=== PATIENT | female | born 1950 | race Caucasian/White ===

== ENCOUNTER 2022-09-25 06:32 | Day surgery (SDC) | payer OTHER, SELFPAY ==
[2022-09-25] VITALS (8 sets, daily range): BP systolic 127–179; BP diastolic 52–70; PULSE 73–83; RESP 14–18; TEMP 35.8–36.5; O2SAT 93–97; BMI 32.4
[2022-09-25 06:58] LABS: Glucometer 124 mg/dL (74-106)
--- NOTE | 2022-09-25 07:19 | PC.NURSE ---
Moist non-productive cough
[2022-09-25] MEDS: LACTATED RINGER'S SOLUTION 1,000 ML 50 ML IV (07:30)
[2022-09-25] MEDS: CEFAZOLIN SODIUM/DEXTROSE,ISO 2 GM/50 ML PIGGYBACK IV ×2 (07:30→07:37)
--- NOTE | 2022-09-25 08:10 | XR_ITS ---
The [address] [address] Patient Name: UDAY SEPULVEDA MRN: [id number] date: 1950 Sex: F Assigned Patient Location: [facility] Current Patient Location: [facility] Accession/Order Number: [id number] Exam Date: 09/25/2022 08:50 Report Date: 09/25/2022 09:25 At the request of: TONI BLAKE Procedure: XR foot RT min 3V PROCEDURE: XR foot RT min 3V HISTORY: post-op COMPARISON: XR foot right 05/10/2022 FINDINGS: BONES:Prior resection of distal end of third and fourth toes. 2 screws within head of second metatarsal. Moderate degenerative joint disease of the first metatarsophalangeal joint. SOFT TISSUES:Soft tissue swelling versus postsurgical changes involving tip of second toe. EFFUSION:None visible. OTHER: Negative. IMPRESSION: 1. Surgical changes as detailed above. Electronically authenticated by: RUSTY PATTERSON Date: 09/25/2022 09:25
[2022-09-25 08:22] LABS: Glucometer 149 mg/dL (74-106)
--- NOTE | 2022-09-25 08:59 | PC.NURSE ---
ICE BEHIND KNEE ON RIGHT
--- NOTE | 2022-09-25 09:02 | P.ORON_ITS ---
Brief Operative Note Date of procedure: 09/25/22 Pre-op diagnosis: right 3rd toe contracture/hammertoe Post-op diagnosis: same Procedure: right partial 3rd toe amputation PROCEDURE IN DETAIL: Patient was identified in pre op and consent was reviewed. Correct side and site were identified and marked. Pre-op antibiotics were started. Patient was brought to OR suite and place on table in a supine position. General anesthesia was administered. Tourniquet applied. Operative extremity was prepped and draped in usual sterile fashion. Formal time-out was performed and the foot/ankle were exsanguinated and tourniquet inflated. A fishmouth incision was placed on the 3rd toe. Full-thickness incision was taken down to bone to the level of the distal interphalangeal joint and all soft tissue attachments were released allowing disarticulation of the digit. The amputated digit was passed back table and sent for specimen. Tendinous structures were cut proximally. Surgical site was irrigated with normal saline. tourniquet was deflated with a prompt hyperemic response.Incision was then closed in one layer with nonabsorbable suture. Bulky dry sterile dressing was applied and surgical shoe was then applied. Implants: none Anesthesia: HAFSA Surgeon: Antonio Segovia Vice President Risk Management: Vincent Westfall Estimated blood loss (mL): 5 Pathology: none sent Condition: stable Disposition: PACU Preoperative Details Surgery: right partial 3rd toe amputation Reason for procedure: patient is a 71-year-old female who has had long-standing 3rd right toe deformity which is caused pain and difficulty with shoes. She has been cleared by vascular surgery by Dr. Simmons, who placed a temporary endovascular filter given history of chronic deep vein thrombosis and right femoral vein. She is also on blood thinners which she has delayed and will restart postoperatively. She was educated on all potential complications including but not limited to blood clot including pulmonary embolism, infection, wound, bleeding, pain and need for additional surgery. Due to her failure to respond to nonsurgical care she wished to proceed with partial toe amputation Surgeon: Antonio Segovia Date of surgery: 09/25/22 Current medication(s): reviewed, see home medication list Use of anticoagulation agents: Yes (xarelto 20 mg daily and ASA 81 mg daily) Patient history: Reports chronic obstructive pulmonary disease (COPD), diabetes and hypertension
== END 2022-09-25 09:50 | disposition home or self-care (01) ==
PROVIDERS: PCP Internal Medicine; Visit Provider Podiatrist Foot & Ankle Surgery
PROC: (CPT 28825; principal; 2022-09-25 07:30)
DX: M20.41 Other hammer toe(s) (acquired), right foot (principal); M20.5X1 Other deformities of toe(s) (acquired), right foot; E11.9 Type 2 diabetes mellitus without complications; I10 Essential (primary) hypertension; I25.10 Atherosclerotic heart disease of native coronary artery without angina pectoris; F17.210 Nicotine dependence, cigarettes, uncomplicated; Z86.718 Personal history of other venous thrombosis and embolism; Z79.01 Long term (current) use of anticoagulants; Z79.82 Long term (current) use of aspirin
CPT/HCPCS: 28825; 36415; 36416; 73630; 82948; 88305; 88311; J2704

== ENCOUNTER 2024-09-03 14:33 | Outpatient (OUT) | payer OTHER, SELFPAY ==
--- NOTE | 2024-09-03 14:58 | PM.WCHP ---
Wound Care H&P: HPI History of Present Illness Narrative: The patient is a pleasant 73-year-old female who presents for routine nail care. The patient had prior partial amputations of the right toes 3 and 4. She has painful calluses on the tip of the fourth toe stump on the right and beneath the second metatarsal head on the left. She also complains of occasional discomfort in the left anterior/lateral ankle that is worse while lying down. PFSH PFS Family History (Updated 09/21/22 @ 08:38 by Franca Locke NP) Mother Family history of cancer Family history of COPD (chronic obstructive pulmonary disease) Grandmother Family history of cancer Meds Home Medications and Allergies Home Medications ?Medication ?Instructions ?Recorded ?Confirmed ?Type amlodipine 10 mg tablet 10 mg PO QDAY 09/21/22 09/25/22 History aspirin 81 mg tablet,delayed 81 mg PO QDAY 09/21/22 09/25/22 History release atorvastatin 10 mg tablet 10 mg PO QPM 09/21/22 09/25/22 History cholecalciferol (vitamin D3) 50 50 mcg PO QDAY 09/21/22 09/25/22 History mcg (2,000 unit) capsule fluticasone fur. 200 mcg-umeclid 1 inh inhalation Q24H 09/21/22 09/21/22 History 62.5 mcg-vilant 25 mcg inhalat.powder (Trelegy Ellipta) rivaroxaban 20 mg tablet (Xarelto) 20 mg PO QDAY 09/21/22 09/25/22 History cefadroxil 500 mg capsule 500 mg PO BID 10 days #20 caps 09/25/22 Rx hydrocodone 5 mg-acetaminophen 325 1 tab PO Q6H PRN pain 7 days #28 09/25/22 Rx mg tablet tabs ondansetron 4 mg disintegrating 4 mg PO QDAY PRN nausea and 09/25/22 Rx tablet vomiting 3 days #6 tabs sennosides 8.6 mg tablet (senna) 8.6 mg PO BID PRN constipation 3 09/25/22 Rx days #6 tabs Allergies Allergy/AdvReac Type Severity Reaction Status Date / Time No Known Drug Allergies Allergy Verified 09/21/22 08:27 Exam Narrative: Exam Narrative: Derm: The toenails on the remaining toes are elongated, thickened, incurvated, and mycotic. Callus formation noted along the surgical scar on the right toe #4. Hyperkeratotic lesion noted beneath the second metatarsal head on the left. No ulcerations are noted. Skin is soft but thin and somewhat shiny. Neuro: Sensation is grossly intact. Normal muscle tone. Vascular: Brisk capillary refill to all toes. 2+ pitting edema noted of bilateral ankles Musculoskeletal: Partial amputations noted of right toes 3 and 4, otherwise no gross deformity Assessment and Plan Assessment and Plan (1) PAD (peripheral artery disease): (2) Tinea unguium: (3) Acquired absence of other right toe(s): (4) Toe pain, right: (5) Skin callus: Plan Routine nail and callus care performed. Follow-up in 3 months. Acute Procedures Podiatry Nail Debridement Class A Findings Class A findings: non-traumatic amputation of foot or integral skeletal portion thereof Class B Findings Advanced trophic changes as evidenced by any three of the following: decreased hair growth, nail changes (thickening) and skin texture (thin or shiny) Class C Findings Claudication: No Temperature changes: No Edema: Yes Nail debridement paresthesia (abnormal spontaneous sensations in the feet): No Burning: No Qualifies If: Qualifiers If:: A patient qualifies for nail debridement if they have: 1 class A finding (Q7) 2 class B findings (Q8) OR 1 class B & 2 class C findings in addition to a primary condition (Q9) Nail Procedure Nail Procedure Time out: Yes Nail procedure: other (Toenail debridement) Number of affected nails: 8 Location (toes): left and right (Toenails of right toes 3 and 4 are surgically absent) Patient tolerated procedure: well and no complications Additional comments: Remaining toenails were sharply debrided with nail nippers without incident. Calluses on the tip of the right fourth toe stump and beneath the second metatarsal head on the left were pared with a dermal curette to the patient's satisfaction. She noted pain relief immediately.
== END 2024-09-03 14:34 | disposition home or self-care (01) ==
LOC: WC 14:33
PROVIDERS: PCP Internal Medicine; Visit Provider Physician Assistant
DX: I73.9 Peripheral vascular disease, unspecified (principal); B35.1 Tinea unguium; L84 Corns and callosities
CPT/HCPCS: 11056; 11721

== ENCOUNTER 2024-12-11 13:46 | Outpatient (OUT) | payer MEDICARE, SELFPAY ==
--- OUTSIDE RECORDS SUMMARY | 2023-12-27 09:20 | XMS_ITS ---
Author Organization The [facility] in [place] Address [address] [place] [address] Care Team Providers Care Visual And Stock Associate Name Role Phone IngridAlessia Otero DO Primary Care Provider Un available Kaelyn Vargas Unavailable [phone] Allergies No Known Allergies REASON FOR VISIT nail care/ callus Medications Medication SIG (Take, Route, Frequency, Duration) Notes Start Date End Date Status Aspirin 81 81 MG 1 tablet Orally Once a day Active Lisinopril 10 MG 1 tablet Orally Once a day Active Trelegy Ellipta Acti ve Vitamin D 50 MCG (1999) 1 tablet Orally Once a day Active Xarelto 10 MG 1 tablet Orally Once a day Active amLODIPine Besylate 10 MG 1 tablet Orally Once a day Active Social History Tobacco Use: Social History Observation Description Date Details (start date - stop date) Current Smoker NA - NA Tobacco Use/Smoking Question Answer Notes Patient is a current smoker How often do you smoke cigarettes? every day How many cigarettes a day do you smoke? 31 or mo re How soon after you wake up do you smoke your fir st cigarette? 6-30 minutes Are you interested in quitting? Not ready to vanesa t Vital Signs Heart Rate 90 /min 12/27/2023 Respiratory Rate 16 /min 12/27/2023 Height 59 in 12/27/2023 Weight 160 lbs 12/27/2023 BMI 32.31 kg/m2 12/27/2023 Oximetry 97 % 12/27/2023 Encounters Encounter Location Date Provider Diagnosis [facility] (PODIATRY) [address] [place] [address] [place] [address] 12/27/2023 Kaelyn Vargas Callus of foot L84 ; Pain in left toe(s) M79.675 and Pain in right toe(s) M79.674 Assessments Encounter Date Diagnosis (ICD Code) Assessment Notes Treatment Notes Treatment Clinical Notes Section Notes 12/27/2023 Callus of foot (ICD-10 - L84) The patient is a 73-year-old female, well-known to our practice, who presents for evaluation of painful elongated toenails and a painful callus on the right foot. After verbal consent, the toenails were trimmed with nail nippers without incident. Callus was debrided using a dermal curette. She noted pain relief postprocedure. Follow-up as needed. 12/27/2023 Pain in left toe(s) (ICD-10 - M79.675) 12/27/2023 Pain in right toe(s) (ICD-10 - M79.674) Plan Of Treatment Treatment Notes Assessment Notes Callus of foot The patient is a 73-year-old female, well-known to our practice, who presents for evaluation of painful elongated toenails and a painful callus on the right foot. After verbal consent, the toenails were trimmed with nail nippers without incident. Callus was debrided using a dermal curette. She noted pain relief postprocedure. Follow-up as needed. Next Appt Details Follow Up: prn, Reason: Progress Notes * Amrit IRIZARRYOB:1950 (73 yo F)Acc No.[id number]:12/27/2023 Follow Up Patient: Bambi LAW Provider: Digna Vargas PA-C :1950 A ge:73 Y S ex:Female Date:12/27/2023 Address:[address] [facility], [place], [id number] Pcp:Jessica Dixon Check In:01:11 PM ESTCheck O ut:01:38 PM EST Subjective: * Chief Complaints: * N ail care/ callus * HPI: G eneral: Here for nail care and paring of right great toe callus. PT has toes left 1-2-3-4-5 and right 1-2-5 nails thick and long. * ROS: G eneral/Constitutional: Chills d enies. F ever d enies. W eight gain?denies. W eight loss d enies. S kin: Skin Ulcers d enies. S kin lesion(s) d enies. ? C ardiovascular: Difficulty breathing on exertion d enies. L eg cramps?denies. E yohan d enies. C hest pain d enies. R espiratory: Difficulty breathing d enies. D yspnea d enies.?Cough d enies. G astrointestinal: Diarrhea d enies. N ausea d enies. V omiting?denies. M usculoskeletal: Bone/Joint Symptoms d enies. C shelter Pain d enies.?Leg cramps d enies. N eurologic: Numbness d enies. T ingling d enies . G ait abnormality d enies. ? H ematology: Anemia D enies. E asy bruising d enies. ? A ll Other Systems: Review of Systems (ROS) S ee HPI for details,All others negative except those mentioned in HPI. * Active Problem List M20.41 Acquired hammer toe deformity of lesser toe of right foot Modified On:11/07/2022W/U Status:confirmed * Medical History: * Surgical History: R ight 2nd toe arthroplasty, dipesh osteotomy 12/16/2019right partial 3rd toe amputation 09/22/2022 * Hospitalization/Major Diagno stic Procedure: N o Hospitalization History. * Family History: N o Family History documented.. * Social History: T obacco Use: T obacco Use/Smoking P atient is a c urrent smoker H ow often do you smoke cigarettes? e very day H ow many cigarettes a day do you smoke? 3 1 or more H ow soon after you wake up do you smoke your first cigarette? 6 -30 minutes A re you interested in quitting? N ot ready to quit * Medications: T akingamLODIPine Besylate 10 MG Tablet 1 tablet Orally Once a day Aspirin 81(Aspirin) 81 MG Tablet Delayed Release 1 tablet Orally Once a day Lisinopril 10 MG Tablet 1 tablet Orally Once a day Trelegy Ellipta Vitamin D 50 MCG (1999 UT) Tablet 1 tablet Orally Once a day Xarelto(Rivaroxaban) 10 MG Tablet 1 tablet Orally Once a day Medication List reviewed and reconciled with the patientTaking amLODIPine Besylate 10 MG Tablet 1 tablet Orally Once a day Taking Aspirin 81(Aspirin) 81 MG Tablet Delayed Release 1 tablet Orally Once a day Taking Lisinopril 10 MG Tablet 1 tablet Orally Once a day Taking Trelegy Ellipta Taking Vitamin D 50 MCG (1999 UT) Tablet 1 tablet Orally Once a day Taking Xarelto(Rivaroxaban) 10 MG Tablet 1 tablet Orally Once a day Medication List reviewed and reconciled with the patient * Allergies: N .K.D.A.no[Allergies Verified] Objective: * Vitals: W t:160lbs, Ht: 59 in, HR:90/min, RR:16/min, BMI:32.31Index, Pain scale:01-10, Oxygen sat %:97%, Ht-cm: 149.86 cm, Wt-k.57 kg. * Examination: P odiatry Exam: S KIN: Toenails of both feet are elongated and painful to touch No open lesions Previously healed surgical incisions noted No breaks in the skin Hyperkeratotic skin lesion noted medial aspect of the right hallux MUSCULOSKELETAL: N o pain to palpation, N o gross deformity, S trength equal & symmetric No pain with calf compression Compartment soft and compressible Partial digital amputations noted NEUROLOGICAL: l ight touch sensation intact, n egative tinel's sign. VASCULAR: P edal pulses palpable, C apillary refill is brisk to toes. Assessment: * Assessment: 1. C allus of foot - L84 (Primary) 2 . P ain in left toe(s) - M79.675 3 . P ain in right toe(s) - M79.674 Plan: * Treatment: * Procedure Codes: * Follow Up: p rn * * Sign off status: Completed Visit Status: C HK (Check Out) true * Provider: Digna Vargas PA-C Date: 0 12/27/2023 Generated for Rosalinda smart/Danish/eTransmitting on: 12/11/2024 01:48 PM EDT History and Physical Notes * HPI (History of Present Illness) Category Sub-Category Detail Notes Category Not es General Here for nail c are and paring of right great toe callus. PT has toes left 1-2-3-4-5 and right 1-2-5 nails thick and long Examination Category Sub-Category Detail Notes Category Not es Podiatry Exam SKIN: Toenails of both feet are elongated and painful to touch No open lesions Previously healed surgical incisions noted No breaks in the skin Hyperkeratotic skin lesion noted medial aspect of the right hallux MUSCULOSKELETAL: No pain to palpation, No gross deformity, Strength equal & symmetric No pain with calf compression Compartment soft and compressible Partial digital amputations noted NEUROLOGICAL: light touch sensation intact, negative tinel's sign. VASCULAR: Pedal pulses palpable, Capillary refill is brisk to toes.
--- OUTSIDE RECORDS SUMMARY | 2024-04-03 10:20 | XMS_ITS ---
Author Organization The [facility] [place] Address [address] [place] [address] Care Team Providers Care Gun Mechanic Name Role Phone IngridSarah Otero DOra Primary Care Provider Un available Kaelyn Vargas Unavailable [phone] Allergies No Known Allergies REASON FOR VISIT nails and RT foot callus trim Medications Medication SIG (Take, Route, Frequency, Duration) Notes Start Date End Date Status Aspirin 81 81 MG 1 tablet Orally Once a day Active Trelegy Ellipta Acti ve Lisinopril 10 MG 1 tablet Orally Once a day Active Xarelto 10 MG 1 tablet Orally Once a day Active Vitamin D 50 MCG (1999) 1 tablet [...] to vanesa t Vital Signs Heart Rate 84 /min 04/03/2024 Respiratory Rate 16 /min 04/03/2024 Height 59 in 04/03/2024 Weight 160 lbs 04/03/2024 BMI 32.31 kg/m2 04/03/2024 Oximetry 96 % 04/03/2024 Encounters Encounter Location Date Provider Diagnosis [facility] (PODIATRY) [address] [place] [address] [place] [address] 04/03/2024 Kaelyn Vargas Acquired hammer toe deformity of lesser toe of right foot M20.41 and Callus of foot L84 Assessments Encounter Date Diagnosis (ICD Code) Assessment Notes Treatment Notes Treatment Clinical Notes Section Notes 04/03/2024 Acquired hammer toe deformity of lesser toe of right foot (ICD-10 - M20.41) The patient is a 73-year-old female, well-known to our practice, who presents for evaluation of painful elongated toenails and a painful callus on the right foot. After verbal consent, the toenails were trimmed with nail nippers without incident. Callus was debrided using a dermal curette. She noted pain relief postprocedure. Follow-up as needed. 04/03/2024 Callus of foot (ICD-10 - L84) Plan Of Treatment Treatment Notes Assessment Notes Acquired hammer toe deformit y of lesser toe of right foot The patient is a 73-year-old female, [...] Notes * Amrit IRIZARRYOB:1950 (73 yo F)Acc No.[id number]:04/03/2024 Follow Up Patient: Bambi LAW Provider: Digna Vargas PA-C :1950 A ge:73 Y S ex:Female Date:04/03/2024 [address] [facility] [id number] Pcp:Jessica Dixon Check In:02:15 PM ESTCheck O ut:02:46 PM EST Subjective: * Chief Complaints: * n ails and RT foot callus trim * HPI: G eneral: here for toenail care and callus paring bilateral feet. * ROS: G eneral/Constitutional: Chills d enies. [...] M usculoskeletal: Bone/Joint Symptoms d enies. C fdc Pain d enies.?Leg cramps d enies. N [...] Surgical History: R ight 2nd toe arthroplasty, dipseh osteotomy 12/16/2019right partial 3rd toe amputation 09/22/2022 [...] day Trelegy Ellipta Vitamin D 50 MCG (1999) Tablet 1 tablet Orally Once a day Xarelto(Rivaroxaban) 10 MG Tablet 1 tablet Orally Once a day Medication List reviewed and reconciled with the patientTaking amLODIPine Besylate 10 MG Tablet 1 tablet Orally Once a day Taking Aspirin 81(Aspirin) 81 MG Tablet Delayed Release 1 tablet Orally Once a day Taking Lisinopril 10 MG Tablet 1 tablet Orally Once a day Taking Sunny Guzman Taking Vitamin D 50 MCG (1999) Tablet 1 tablet Orally Once a day Taking Xarelto(Rivaroxaban) 10 MG Tablet 1 tablet Orally Once a day Medication List reviewed and reconciled with the patient * Allergies: N .K.D.A.no[Allergies Verified] Objective: * Vitals: W t:160lbs, Ht: 59 in, HR:84/min, RR:16/min, BMI:32.31Index, Pain scale:01-10, Oxygen sat %:96%, Ht-cm: 149.86 cm, Wt-k.57 kg. * Examination: [...] brisk to toes. Assessment: * Assessment: 1. A cquired hammer toe deformity of lesser toe of right foot - M20.41 (Primary) ?2. C allus of foot - L84 Plan: * Treatment: * Procedure Codes: * Follow Up: p rn * * Sign off status: Completed Visit Status: C HK (Check Out) true * Provider: Digna Vargas PA-C Date: 1 06/04/2023 Generated for Rosalinda smart/Danish/Gretelitting on: 0 12/11/2024 01:48 PM EDT History and Physical Notes * HPI (History of Present Illness) Category Sub-Category Detail Notes Category Not es General here for toenai l care and callus paring bilateral feet Examination Category Sub-Category Detail Notes Category Not [...]
--- OUTSIDE RECORDS SUMMARY | 2024-06-19 09:20 | XMS_ITS ---
Author Organization [facility] in [place] Address [address] [place] [address] Care Team Providers Care Geophysics Teacher Name Role Phone Carlitosy Alessia NORIEGA Primary Care Provider Un available Kaelyn Vargas Unavailable [phone] Allergies No Known Allergies REASON FOR VISIT NAIL CARE/ CALLUS Medications Medication SIG (Take, Route, Fr equency, Duration) Notes Start Date End Date Status Venlafaxine HCl 100 MG 1 tablet with andrae d Orally Once a day Active Valsartan 160 MG 1 tablet Orally Once a day Active tiZANidine HCl 4 MG 1 tablet at bedtime as needed Orally Once a day Active Lisinopril 10 [...] to vanesa t Vital Signs Heart Rate 86 /min 06/19/2024 Respiratory Rate 16 /min 06/19/2024 Height 59 in 06/19/2024 Weight 160 lbs 06/19/2024 BMI 32.31 kg/m2 06/19/2024 Oximetry 96 % 06/19/2024 Encounters Encounter Location Date Provider Diagnosis [facility] (PODIATRY) [address] [place] [address] [place] [address] 06/19/2024 Kaelyn Vargas Acquired hammer toe deformity of lesser toe of right foot M20.41 ; Callus of foot L84 ; Nail disorder, unspecified L60.9 ; Pain in left toe(s) M79.675 ; Foot pain, right M79.671 and Status post amputation of lesser toe of right foot Z89.421 Assessments Encounter Date Diagnosis (ICD Code) Assessment Notes Treatment Notes Treatment Clinical Notes Section Notes 06/19/2024 Acquired hammer toe deformity of lesser toe of right foot (ICD-10 - M20.41) The patient is a 73-year-old female, well-known to our practice, who presents for evaluation of painful elongated toenails and a painful callus on the left foot. After verbal consent, the toenails were trimmed with nail nippers without incident. Callus was debrided using a dermal curette. She noted pain relief postprocedure. Follow-up as needed. 06/19/2024 Callus of foot (ICD-10 - L84) 06/19/2024 Nail disorder, unspecified (ICD-10 - L60.9) 06/19/2024 Pain in left toe(s) (ICD-10 - M79.675) 06/19/2024 Foot pain, right (ICD-10 - M79.671) 06/19/2024 Status post amputation of lesser toe of right foot (ICD-10 - Z89.421) Plan Of Treatment Treatment Notes Assessment Notes Acquired hammer toe deformit y of lesser toe of right foot The patient is a 73-year-old female, well-known to our practice, who presents for evaluation of painful elongated toenails and a painful callus on the left foot. After verbal consent, the toenails were trimmed with nail nippers without incident. Callus was debrided using a dermal curette. She noted pain relief postprocedure. Follow-up as needed. Next Appt Details Follow Up: prn, Reason: Progress Notes * Amrit IRIZARRYOB:1950 (73 yo F)Acc No.[id number]:06/19/2024 Follow Up Patient: Bambi LAW Provider: Digna Vargas PA-C :1950 A ge:73 Y S ex:Female Date:06/19/2024 Address:[address] [facility] [place], [id number] Pcp:Jessica Dixon Check In:01:13 PM ESTCheck O ut:01:56 PM EST Subjective: * Chief Complaints: * N AIL CARE/ CALLUS * HPI: G eneral: Pt here for bilateral nail trim, left plantar foot callus paring. No other complaints. * ROS: G eneral/Constitutional: Chills d enies. [...] M usculoskeletal: Bone/Joint Symptoms d enies. C senior living Pain d enies.?Leg cramps d enies. N [...] ot ready to quit * Medications: T akingLisinopril 10 MG Tablet 1 tablet Orally Once a day tiZANidine HCl 4 MG Tablet 1 tablet at bedtime as needed Orally Once a day Valsartan 160 MG Tablet 1 tablet Orally Once a day Venlafaxine HCl 100 MG Tablet 1 tablet with food Orally Once a day Taking Lisinopril 10 MG Tablet 1 tablet Orally Once a day Taking tiZANidine HCl 4 MG Tablet 1 tablet at bedtime as needed Orally Once a day Taking Valsartan 160 MG Tablet 1 tablet Orally Once a day Taking Venlafaxine HCl 100 MG Tablet 1 tablet with food Orally Once a day DiscontinuedamLODIPine Besylate 10 MG Tablet 1 tablet Orally Once a day Aspirin 81(Aspirin) 81 MG Tablet Delayed Release 1 tablet Orally Once a day Omeprazole 20 MG Capsule Delayed Release 1 capsule 1/2 to 1 hour before morning meal Orally Once a day Pravastatin Sodium 20 MG Tablet 1 tablet Orally Once a day Trelegy Ellipta Vitamin D 50 MCG (2000 UT) Tablet 1 tablet Orally Once a day Xarelto(Rivaroxaban) 10 MG Tablet 1 tablet Orally Once a day Medication List reviewed and reconciled with the patientDiscontinued amLODIPine Besylate 10 MG Tablet 1 tablet Orally Once a day Discontinued Aspirin 81(Aspirin) 81 MG Tablet Delayed Release 1 tablet Orally Once a day Discontinued Omeprazole 20 MG Capsule Delayed Release 1 capsule 1/2 to 1 hour before morning meal Orally Once a day Discontinued Pravastatin Sodium 20 MG Tablet 1 tablet Orally Once a day Discontinued Trelegy Ellipta Discontinued Vitamin D 50 MCG (2000 UT) Tablet 1 tablet Orally Once a day Discontinued Xarelto(Rivaroxaban) 10 MG Tablet 1 tablet Orally Once a day Medication List reviewed and reconciled with the patient * Allergies: N .K.D.A.no[Allergies Verified] Objective: * Vitals: W t:160lbs, Ht: 59 in, HR:86/min, RR:16/min, BMI:32.31Index, Pain scale:01-10, Oxygen sat %:96%, Ht-cm: 149.86 cm, Wt-k.57 kg. * Examination: P odiatry Exam: S KIN: Toenails of both feet are elongated and painful to touch No open lesions Previously healed surgical incisions noted No breaks in the skin PINFUL Hyperkeratotic skin lesion noted on the left plantar foot beneath the second metatarsal head MUSCULOSKELETAL: N o pain to palpation, N [...] ?2. C allus of foot - L84 3 . N ail disorder, unspecified - L60.9 ? 4 . P ain in left toe(s) - M79.675 5 . F oot pain, right - M79.671 6. S tatus post amputation of lesser toe of right foot - Z89.421 ? Plan: * Treatment: * Procedure Codes: * Follow Up: p rn * * Sign off status: Completed Visit Status: C HK (Check Out) true * Provider: Digna Vargas PA-C Date: 0 06/19/2024 Generated for Rosalinda smart/Danish/Gretelitting on: 0 12/11/2024 01:48 PM EDT History and Physical Notes * HPI (History of Present Illness) Category Sub-Category Detail Notes Category Not es General Pt here for riki ateral nail trim, left plantar foot callus paring. No other complaints. Examination Category Sub-Category Detail Notes Category Not es Podiatry Exam SKIN: Toenails of both feet are elongated and painful to touch No open lesions Previously healed surgical incisions noted No breaks in the skin PINFUL Hyperkeratotic skin lesion noted on the left plantar foot beneath the second metatarsal head MUSCULOSKELETAL: No pain to palpation, No gross deformity, Strength equal & symmetric No pain with calf compression Compartment soft and compressible Partial digital amputations noted NEUROLOGICAL: light touch sensation intact, negative tinel's sign. VASCULAR: Pedal pulses palpable, Capillary refill is brisk to toes.
--- OUTSIDE RECORDS SUMMARY | 2024-12-11 13:48 | XMS_ITS | Clinical Summary ---
Author Organization [facility] Address [address] [place] [address] Phone Care Team Providers Care Wedger And Gluer Name Role Phone Alessia Goodson DO Primary Care Provi alex Social History Tobacco Use Types Packs/Day Years Used Date Smoking Tobacco: Never Assessed Comments Unknown Sex and Gender Information Value Date Recorded Sex Assigned at Not on file Legal Sex Female 1:59 AM EST Gender Identity Not on file Sexual Orientation Not on file Plan of Treatment Health Maintenance Due Date Last Done Comments Lipid Panel 1948 Yearly Adult Physical 1950 Hepatitis C Screening 1966 DTaP/Tdap/Td Vaccines (1 - Tdap) 1970 Pneumococcal Vaccine (1 of 1 - PCV) 1998 Zoster Vaccines (1 of 2) 1998 Bone Density Scan 2013 RSV High Risk: (Elderly (60+ ) or Population) (1 - 1-dose 75+ series) 11/14/2023 COVID-19 Vaccine (1 - 2023-2 5 season) 2023 Influenza Vaccine (#1) 2024 HIB Vaccines Aged Out No longer eligi ble based on patient's age to complete this topic HPV Vaccines Aged Out No longer eligi ble based on patient's age to complete this topic Hepatitis A Vaccines Aged Out No long er eligible based on patient's age to complete this topic Hepatitis B Vaccines Aged Out No long er eligible based on patient's age to complete this topic IPV Vaccines Aged Out No longer eligi ble based on patient's age to complete this topic Meningococcal Vaccine Aged Out No isabel luis eligible based on patient's age to complete this topic Rotavirus Vaccines Aged Out No longer eligible based on patient's age to complete this topic Care Teams Wedger And Gluer Relationship Specialty Start Date End Date Alessia Goodson DO [address] [place] [address] [facility] - General 03/24/22
--- OUTSIDE RECORDS SUMMARY | 2024-12-11 13:48 | XMS_ITS | Encounter Summary ---
Author Organization [facility] Address [address] [place] [address] Phone Care Team Providers Care Transportation Economics Teacher Name Role Phone Alessia Goodson DO Primary Care Provi alex Encounter Details Date Type Department Care Team (Late st Contact Info) Description 03/30/2023 Scanned Document [facility] [address] [place] [id number] Scanning, Generic Provider Social History Tobacco Use Types Packs/Day Years Used Date Smoking Tobacco: Never Assessed Comments Unknown Sex and Gender Information Value Date Recorded Sex Assigned at Not on file Legal Sex Female 1:59 AM EST Gender Identity Not on file Sexual Orientation Not on file documented as of this encounter Plan of Treatment Not on file documented as of this encounter Visit Diagnoses Not on filedocumented in this encounter Care Teams Transportation Economics Teacher Relationship Specialty Start Date End Date Alessia Goodson DO [address] [place] [address] PCP - General 03/24/22 documented as of this encounter
--- OUTSIDE RECORDS SUMMARY | 2024-12-11 13:48 | XMS_ITS | Patient Health Record ---
Author Organization [facility] [place] Address [address] [place] [address] Care Team Providers Care Dietary Director Name Role Phone Alessia Goodson DO Primary Care Provider Un available Kaelyn Vargas Unavailable [phone] Allergies No Known Allergies Reason For Referral No Information Medications Medication SIG (Take, Route, Fr equency, [...] in quitting? 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 (PODIATRY) [address] [place] [address] [place] [address] 12/27/2023 Kaelyn Vargas Callus of foot L84 ; Pain in left toe(s) M79.675 and Pain in right toe(s) M79.674 [facility] (PODIATRY) [address] [place] [address] [place] [address] 04/03/2024 Kaelyn Vargas Acquired hammer toe deformity of lesser toe of right foot M20.41 and Callus of foot L84 [facility] (PODIATRY) [address] [place] [address] [place] [address] 06/19/2024 Kaelyn Vargas Acquired hammer toe deformity [...] 04/03/2024 Callus of foot (ICD-10 - L84) 06/19/2024 Acquired hammer toe deformity of lesser [...] 06/19/2024 Callus of foot (ICD-10 - L84) 12/27/2023 Callus of foot (ICD-10 - L84) [...] Pain in right toe(s) (ICD-10 - M79.674) 06/19/2024 Nail disorder, unspecified (ICD-10 - L60.9) 06/19/2024 Pain in left toe(s) (ICD-10 - M79.675) 06/19/2024 Foot pain, right (ICD-10 - M79.671) 06/19/2024 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
--- NOTE | 2024-12-11 14:22 | PM.WCHP ---
Wound Care H&P: HPI History of Present Illness Narrative: The patient is a pleasant 74-year-old female who presents for routine nail care. The patient had prior partial amputations of the right toes 3 and 4. Her calluses did not recur after the last visit and she has no complaints at this time. [facility] Family History (Updated 09/21/22 @ 08:38 by Franca Locke NP) Mother Family history of cancer Family history of COPD (chronic obstructive pulmonary disease) Grandmother Family history of cancer Meds Home Medications and Allergies Home Medications ?Medication ?Instructions ?Recorded ?Confirmed ?Type amlodipine 10 mg tablet 10 mg PO QDAY 09/21/22 09/25/22 History aspirin 81 mg tablet,delayed 81 mg PO QDAY 09/21/22 09/25/22 History release atorvastatin 10 mg tablet 10 mg PO QPM 09/21/22 09/25/22 History cholecalciferol (vitamin D3) 50 50 mcg PO QDAY 09/21/22 09/25/22 History mcg (2,000 unit) capsule fluticasone fur. 200 mcg-umeclid 1 inh inhalation Q24H 09/21/22 09/21/22 History 62.5 mcg-vilant 25 mcg inhalat.powder (Trelegy Ellipta) rivaroxaban 20 mg tablet (Xarelto) 20 mg PO QDAY 09/21/22 09/25/22 History cefadroxil 500 mg capsule 500 mg PO BID 10 days #20 caps 09/25/22 Rx hydrocodone 5 mg-acetaminophen 325 1 tab PO Q6H PRN pain 7 days #28 09/25/22 Rx mg tablet tabs ondansetron 4 mg disintegrating 4 mg PO QDAY PRN nausea and 09/25/22 Rx tablet vomiting 3 days #6 tabs sennosides 8.6 mg tablet (senna) 8.6 mg PO BID PRN constipation 3 09/25/22 Rx days #6 tabs Allergies Allergy/AdvReac Type Severity Reaction Status Date / Time No Known Drug Allergies Allergy Verified 09/21/22 08:27 Exam Narrative: Exam Narrative: Derm: The toenails on the remaining toes are elongated, thickened, incurvated, and mycotic. No ulcerations are noted. Skin is soft but thin and somewhat shiny. Neuro: Sensation is grossly intact. Normal muscle tone. Vascular: Brisk capillary refill to all toes. 2+ pitting edema noted of bilateral ankles Musculoskeletal: Partial amputations noted of right toes 3 and 4, otherwise no gross deformity Assessment and Plan Assessment and Plan (1) PAD (peripheral artery disease): (2) Tinea unguium: (3) Acquired absence of other right toe(s): (4) Toe pain, right: (5) Skin callus: Plan Routine nail care performed. Follow-up in 3 months. Acute Procedures Podiatry Nail Debridement Class A Findings Class A findings: non-traumatic amputation of foot or integral skeletal portion thereof Class B Findings Advanced trophic changes as evidenced by any three of the following: decreased hair growth, nail changes (thickening) and skin texture (thin or shiny) Class C Findings Claudication: No Temperature changes: No Edema: Yes Nail debridement paresthesia (abnormal spontaneous sensations in the feet): No Burning: No Qualifies If: Qualifiers If:: A patient qualifies for nail debridement if they have: 1 class A finding (Q7) 2 class B findings (Q8) OR 1 class B & 2 class C findings in addition to a primary condition (Q9) Nail Procedure Nail Procedure Time out: Yes Nail procedure: other (Toenail debridement) Number of affected nails: 8 Location (toes): left and right (Toenails of right toes 3 and 4 are surgically absent) Patient tolerated procedure: well and no complications Additional comments: Remaining toenails were sharply debrided with nail nippers without incident. Calluses on the tip of the right fourth toe stump and beneath the second metatarsal head on the left were pared with a dermal curette to the patient's satisfaction. She noted pain relief immediately.
== END 2024-12-11 13:47 | disposition home or self-care (01) ==
LOC: WC 13:46
PROVIDERS: PCP Internal Medicine; Visit Provider Physician Assistant
DX: I73.9 Peripheral vascular disease, unspecified (principal); B35.1 Tinea unguium; Z89.421 Acquired absence of other right toe(s); M79.674 Pain in right toe(s); L84 Corns and callosities
CPT/HCPCS: 11721

== ENCOUNTER 2025-03-12 13:55 | Outpatient (OUT) | payer MEDICARE, SELFPAY ==
--- OUTSIDE RECORDS SUMMARY | 2025-03-06 19:12 | XMS_ITS | Continuity of Care Document ---
Author Organization [facility] Address [address] [place] [address] Phone Care Team Providers Care Subassemblies Wirer Name Role Phone Alessia Goodson DO Primary Care Provider Alessia Goodson DO Attending Provider Jose Little DO Emergency Provider Ernie Hay MD Admit Provider Snia Latham MD Attending Provider Kristina Starkey MELTER CASTER-C Attending Provider Pramod Simmons MD Attending Provider [phone] Care Teams Patient Care Team Team Status: Active Member Role/Relationship Status Dates Alessia Goodson DO Primary Care Provider Active Visit Care Team Team Status: Inactive Member Role/Relationship Status Dates Alessia Goodson DO Primary Care Provider Active Start: January 06, 2025 End: January 06, 2025Sayennifer Goodson DOAttending ProviderActiveStart: January 06, 2025 End: January 06, 2025 Visit Care Team Team Status: Inactive Member Role/Relationship Status Dates Jose Little DO Emergency Provider Active Star t: February 01, 2025 End: February 02, 2025SaApolonia Aguirre Care ProviderActiveStart: February 01, 2025 End: February 02, 2025Ernie Martha MCIHAEL Haydmit ProviderActiveStart: February 01, 2025 End: February 02, 2025Raemily Latham MDAttending ProviderActiveStart: February 01, 2025 End: February 02, 2025 Visit Care Team Team Status: Inactive Member Role/Relationship Status Dates Alessia Goodson DO Primary Care Provider Active Start: February 10, 2025 End: February 10, 2025Kristina Starkey NP-CAttending ProviderActiveStart: February 10, 2025 End: February 10, 2025 Visit Care Team Team Status: Inactive Member Role/Relationship Status Dates Alessia Goodson DO Primary Care Provider Active Start: February 11, 2025 End: February 11, 2025Sayennifer Goodson DOAttending ProviderActiveStart: February 11, 2025 End: February 11, 2025 Visit Care Team Team Status: Inactive Member Role/Relationship Status Dates Alessia Goodson DO Primary Care Provider Active Start: March 05, 2025 End: March 05, 2025MaJohnna Mancera ProviderActiveStart: March 05, 2025 End: March 05, 2025 Visit Care Team Team Status: Inactive Member Role/Relationship Status Dates Alessia Goodson DO Primary Care Provider Active Start: March 06, 2025 End: March 06, 2025Sayennifer Goodson DOAttending ProviderActiveStart: March 06, 2025 End: March 06, 2025 Chief Complaint and Reason for Visit Chief Complaint Admit Date Z.31 Z78.0 Z13.820 January 06 9:50am Chest Pain February 01, 2025 4 :11pm I83.813 I65.23 February 10, 2025 2 :20pm M acute right shoulder pain January 1:00pm 1 year follow up; FF B/L legs and Caroti d at [facility] March 05, 2025 11:17am M25.611 M25.511 M25.411 S49.91XD Novembe r 2024 11:54am Reason for Visit Admit Date Carotid stenosis, bilateral January 4:11pm Current every day smoker February 01 025 4:11pm PAD (peripheral artery disease) February 01, 2025 4:11pm Tobacco use disorder February 01, 2025 4:11pm Chest pain February 01, 2025 4 :11pm Ventricular tachycardia February 01 4:11pm PAD (peripheral artery disease) March 05, 2025 11:17am Reason for Referral Type Reason(s) Provider Provider Contact Information Ermelinda sandoval Address Start Date Jigna Yeboah MDEmail: [email or web address] Work Phone: [phone] [facility] [address] [facility] [address]Ltq have been scheduled for a follow up appointment for the following date and time, please call to reschedule if needed.Jessica Mederos Phone: [phone] [facility] [address] Health Concerns Concerns Start Date A [facility] screening has identified you as FRAIL or AT RISK FOR FRAILTY. This puts you at a higher risk for infection, illness, falls, and other injuries. Here are four ways to help you reduce your risk of frailty: 1. IDENTIFY EARLY SIGNS OF FRAILTY ??? Discuss contributing factors and concerns with your doctor 2. BE ACTIVE ??? Walking and light strengthening exercises will help reduce weakness 3. EAT WELL ??? Aim for three healthy meals a day that are high in protein 4. THINK POSITIVE ??? Keep your mind active by being sociable and continuing to learn References: Stay Strong: Four Ways to Beat the Frailty Risk https://www.[email or web address].org/health/gtyvrnuh-brg-pzrrbvytkc/cemb-sfznjj-mkto- vtpu-qn-qczz-the-fra ilty-risk Allergies, Adverse Reactions, Alerts Allergen Type Severity Reaction Last Updated Verified Status No Known Allergies Allergy Unknown March 05, 2025 11:47amYesActive Social History Smoking Status Status Start Date End Date Date of Observa tion Smokes tobacco daily (finding) March 05, 2025 11:49am Observation Status Observation Response Date of Response Legal Sex Female (finding) Sex Assigned At BirthFemaleJuly 1950 Family History Relationship Condition Age at Onset Recorded Date/T beau father Cardiovascular disease Unknown motherMalignant neoplasmUnknownfatherChronic obstructive pulmonary disease UnknownHeart diseaseUnknownDeceasedUnknownmotherChronic obstructive pulmonary diseaseUnknownMalignant neoplasmUnknownDeceasedUnknown Problems Active Problems Problem Diagnosis/Recorded Date Onset Date Status C omments Lower extremity edema February 07, 2024 1:09pm Unknown Active Current every day smokerOctj[facility] 2023 1:09pmUnknownActiveTobacco use disorderOctjane todd [facility] 2024 11:45pmUnknownActiveS/P IVC filterApril 2023 11:06amUnknownActivePAD (peripheral artery disease)July 11, 2023 10:34am UnknownActiveCarotid stenosis, bilateralJuly 11, 2023 10:34amUnknownActive HypertensionNovember 2024 11:48amUnknownActiveInactive/Resolved Problems Problem Diagnosis/Recorded Date Onset Date Status C omments Pre-syncope September 08, 2021 8:15am Unknown Resolved Pr oblem List clean-up per request of Phys. EHR Cmte Syncope September 07, 2022 8:24am Unknown Resolved Pro blem List clean-up per request of Phys. EHR Cmte Ventricular tachycardia January 31, 2025 1:41pm Unknown Resolved Chest wall contusionMay 2023 2:24pmUnknownResolvedChest painEaton [facility] 2024 1:41pmUnknownResolvedHemorrhoidMay 2021 8:15amUnknownResolvedProblem List clean-up per request of Phys. EHR Cmte Medications Medication Status Dose Units Route Directions Qty Days Refills S tart Date Stop Date End Date Reason(s) Instructions Adherence Atorvastatin 10 mg tablet Discontinued 10 MG PO D aily October 05, 2021 11:00pmOctjane [facility] 2024 3:08pmAmlodipine 10 mg tablet Mdrjnsxcjlpm88XDPLTdqgqIhlx 2021 11:00pmOctjane todd crawford memorial hospital 2024 3:08pmAspirin 81 mg tablet,cuadvfwqGorcqfzdcuru84FXJNOqyueGcix 2021 11:00pmMar 2023 10:33amCholecalciferol (Vitamin D3) (Vitamin D3) 50 mcg (2,000 unit) DauvwiqQfahap65XMOVIFodch dailyJune 2021 11:00pmUnknown Gwipmrqvtn-Ktrrpjwh-Dqpfuyyszp (Breztri Aerosphere) 160-9-4.8 mcg/actuation HFA aerosol jqnkpulLkrctz0TMDGCDTGRMKKFBqfng dailyOct2024 11:00pmUnknown Atorvastatin 40 mg KjfchyAlaurg27ZOFSWdbxh350112Sgveovw 2024 11:00pm UnknownAmlodipine 10 mg RjvamdXnlpzm90LRBFQbutj259870Cpayclb 2024 11:00pm UnknownAspirin (Children's Aspirin) 81 mg Tablet,TfkdocdeHdoqcq22QYTQIeahy453588 February 01, 2025 11:00pmUnknownMetoprolol Succinate 25 mg Tablet Extended Release 24 HhNyuwrm37TDRTBeydn217599Sikakfd 2024 11:00pmUnknownValsartan 40 mg KymyuwLcyeup76HCDPBontj060687Jqnyrth 2024 11:00pmUnknown Hydrocortisone (Anusol-Hc) 2.5 % cream with perineal applicatorDiscontinued1 APPLICPR5 times per pom510Swg2021 11:00pmJune 2021 6:00am Rivaroxaban (Xarelto) 20 mg wvagalLrjtpnqwtxun21ODRNNkoptJkcjn 2022 11:00pmV[facility] 2023 10:40iiXmgpnyogkjm-Hbmmjukso-Wfavrbmc (Trelegy Ellipta) 100-62.5-25 mcg Blister With TjplalNuakdrbkesdi7TPXXBRFUJYGSZEoszsLcsks 2022 11:00pmOctober 2024 10:54amAspirin 325 mg eawiunLosinytbzitv671EAPU DailyMarch 2023 11:00pmOctober 2024 3:08pmCilostazol 100 mg tablet Sgeewk597HYHBPbuxwuhm 2024 12:00amUnknownAlendronate 70 mg tabletActiveMG PONovember 2024 12:00amUnknown Immunizations Immunization Event Date Not Given Reason Dose Number Chicken Sexer Lot Number Reason(s) Given Vaccine Information Statement (VIS) Detail Administration Location COVID-19 mRNA, Comirnaty (Pfizer) June 22 COVID-19 mRNA, Comirnaty (Pfizer)July 13OVID-19 mRNA, Comirnaty (Pfizer)January 25, 2021 Medical Equipment Device Date Implanted Date Explanted Device Deta ils Vena cava filter, temporary/permanent August 14, 2022 August 09, 2023 ELIANE: [id number] Issuing Agency: [facility] Device Id: [id number] Manufacturing Date: 2021-07-20 Expiration Date: 2024-07-20 Lot Number: [id number] Procedures Procedure Date Performed Status MM screening mammo BI w/CAD January 06, 2025 8:54am completed XR dexa axial skeleton January 06, 2025 8:54 am completed XR chest 1V portable January 31, 2025 10:52am completed US venous duplex LE LT January 31, 2025 11:19a m completed Fluoroscopy of Left Heart us ing Low Osmolar Contrast February 01, 2025 active Fluoroscopy of Multiple Royce nary Arteries using Low Osmolar Contrast February 01, 2025 active Measurement of Cardiac Sampl ing and Pressure, Left Heart, Percutaneous Approach February 01, 2025 active US carotid doppler BI February 10, 2025 1:23pm completed US venous duplex LE BI February 10, 2025 1:23pm completed MR shoulder RT wo con March 06, 2025 11:55a m completed Relevant Diagnostic Tests and/or Laboratory Data Laboratory Results Test Collection Date/Time Result Date/Time Result Interpretation Reference Range Result Comment Performing Site Corrected White Blood Count February 02, 2025 8:53am February 02, 2025 9:22am 7.2 10*3/uL 3.8-11.6F[facility] [id number] [address] [facility] [address]Qnvuucnpyqm WBC CountOct2024 8:53amOctober 2024 9:22am7.2 10*3/uL3.8-11.6FSt. [facility] [id number] [address] [place] [address] 434[address]Prg Blood CountOctober 2024 8:53amOctober 2024 9:22am4.41 10*6/uL3.60-5.00[facility] [id number] [address] [place] [address] 63899InlbgnpqefQtztctc 2024 8:53amOctober 2024 9:22am 14.5 g/dL11.8-15.4FSt. [facility] Hospital [facility] [id number] [address] [place] [address] 15009SqfzgktdqbLlxnuar 2024 8:53amOctober 2024 9:22am 42.7 %34.0-46.4FSt. [facility] [id number] [address] [place] [address] 22984Dknf Corpuscular VolumeOctober 2024 8:53amOctober 2024 9:22am96.7 kC58-001HseigpptkMemorial Health System Ctr [id number] [address] [place] [address] 14836Wodo Corpuscular HemoglobinOctober 2024 8:53amOctober 2024 9:22am32.9 pg24.7-34.3FSt. [facility] [id number] [address] [place] [address] 67928Ugyw Corpuscular Hemoglobin ConcentOctober 2024 8:53am October 2024 9:22am34.1 g/dL32.0-35.0[facility] [id number] [address] [place] [address] 25292Jam Cell Distribution WidthOctober 2024 8:53amOctober 2024 9:22am14.4 %11.9-15.3FSt. [facility] [id number] [address] [place] [address] 41007Ejrrbqku CountOctober 2024 8:53amOctober 2024 9:50jc512 10*3/nE073-682LtupurandMemorial Health System Ctr [id number] [address] [place] [address] 85280Hnzj Platelet VolumeOctober 2024 8:53amOctober 2024 9:22am9.0 fL6.3-10.7FSt. [facility] [id number] [address] [facility] 90371Gstbxtne Distribution WidthOctober 2024 10:53amOctober 2024 11:07am19.12 %0.00-20.00[facility] [id number] [address] [facility] 59182Lxbhifqctwm (%) (Auto)February 02, 2025 8:53amOctober 2024 9:22am71.1 %.[facility] [id number] [address] [facility] 59239Epypsywcmkg (%) (Auto)February 02, 2025 8:53amOctober 2024 9:22am19.5 %.[facility] [id number] [address] [facility] 75393Adkpwarku (%) (Auto)February 02, 2025 8:53amOctober 2024 9:22am7.1 %.[facility] [id number] [address] [facility] 298[address]Bhsssuooown (%) (Auto)February 02, 2025 8:53amOctober 2024 9:22am1.4 %.[facility] [id number] [address] [facility] 529[address]Yjnuivukf (%) (Auto)February 02, 2025 8:53amOctober 2024 9:22am0.9 %.[facility] [id number] [address] [facility] 849[address]Lzoorpuis RBC Relative Count (auto)February 02, 2025 8:53am February 02, 2025 9:22am0.1 /100{WBC}0-0.5FSt. [facility] [id number] [address] [place] 97690[address]Neutrophils # (Auto)February 02, 2025 8:53amOctober 2024 9:22am5.1 10*3/uL1.8-7.7FSt. [facility] [id number] [address] [facility] 445[address]Aqytixiuiyw # (Auto)February 02, 2025 8:53amOctober 2024 9:22am1.4 10*3/uL1.00-4.8[facility] [id number] [address] [place] [address] 559[address]Snwtttjzy # (Auto)February 02, 2025 8:53amOctober 2024 9:22am0.5 10*3/uL0.0-0.8[facility] [id number] [address] [place] [address] 12040Maazxrzkfrr # (Auto)February 02, 2025 8:53amOctober 2024 9:22am0.1 10*3/uL0.0-0.45[facility] [id number] [address] [place] [address] 83253Hikctmiil # (Auto)February 02, 2025 8:53amOctober 2024 9:22am0.1 10*3/uL0.0-0.2FSt. [facility] [id number] [address] [place] [address] 90694Nspjvirpmaa TimeOctober 2024 8:53amOctober 2024 9:49am11.4 s9.0-12.9A hematocrit value greater than 55% may lead to inaccurate results in coagulation testing. Patientshaving hematocrit values >55% require a special collection tube for coagulation studies. Please contact the laboratory at [phone] for redraw instructions.[facility] [id number] [address] [place] [address] 12369Azqsqwlwx Time International RatioOct2024 8:53am February 02, 2025 9:49am1.0INR Therapeutic Range A) Pre- and Peroperative OAT started two weeks before surgery. NOT HIP SURGERY: 1.5 - 2.5 HIP SURGERY: 2 - 3B) Primary and secondary prevention of venous THROMBOSIS: 2 - 3C) Active venous thrombosis, pulmonary embolismand prevention of recurrent venous thrombosis: 2 - 3D) Prevention of arterial thromboembolismincluding patients with mechanical heart valves: 3 - 4.5FSt. [facility] Hospital [facility] [id number] [address] [place] [address] 07042Ixzrjgwiw Partial Thromboplast TimeOctober 2024 8:53am February 02, 2025 9:49am33.8 s25.1-36.5A hematocrit value greater than 55% may lead to inaccurate results in coagulation testing. Patientshaving hematocrit values >55% require a special collection tube for coagulation studies. Please c ontact the laboratory at [phone] for redraw instructions.[facility] [id number] [address] [facility] [address]K-Ytdle Quantitative (PE/DVT)January 31, 2025 4:20pmOct2024 5:15pm< 200 ng/mL0-243The reference range for D-dimer is <243 ng/mL D-dimer units.D-dimer results must be used in conjunction with a clinicalpretest probability (PTP) assessment model for deep veinthrombosis (DVT) and pulmonary embolism (PE). Results <230ng/mL d-dimer units can be used as a negative predictor inpatients with low or moderate probability for DVT/PE.Results above the exclusion threshold of 230 ng/ml D-dimerunits for DVT/PE may indicate the need for furtherdiagnostic testing.D-Dimer can be increased in hospitalized patients due toco-morbid conditions.A hematocrit value greater than 55% may lead to inaccurate results in coagulation testing. Patients having hematocrit values >55% require a special collection tube for coagulation studies. Please contact the laboratory at [phone] for redraw instructions.[facility] [id number] [address] [facility] [address]32[address]Yrmquwl LevelOct2024 8:53amOct2024 9:43am 107 mg/dLAbove high impubt30-628QVN recommended reference rangeRandom Glucose Reference Range is dependent on time and content of last meal. Glucose of more than 200 mg/dL in a nonstressed, ambulatory subject supports the diagnosisof Diabetes Mellitus.[facility] [id number] [address] [facility] 90088Gcjfv Urea NitrogenOct2024 8:53amOctober 2024 9:43am15 mg/dL7-25[facility] [id number] [address] [facility] 91539DtfbdojabkPitbnpz 13th, 2025 8:53amOctober 2024 9:43am 0.66 mg/dL0.60-1.20[facility] [id number] [address] [facility] 32365Ecvwfoohz GFR (CKD-EPI)February 02, 2025 8:53amOctober 2024 9:43am> 60.0 mL/MinMemorial Health System Ctr [id number] [address] [facility] 42952Nbnynj LevelOctober 2024 8:53amOctober 2024 9:43am 141 mmol/M514-431ZwgmlevcgMemorial Health System Ctr [id number] [address] [facility] 29886Ntesuehkf LevelOctober 2024 8:53amOctober 2024 9:43am3.8 mmol/L3.5-5.1FSt. [facility] Hospital [facility] [id number] [address] [facility] 40042Fnmaumup LevelOctober 2024 8:53amOctober 2024 9:32in210 mmol/LAbove high ozvstd93-679YzmzyaxyfMemorial Health System Ctr [id number] [address] [facility] 41721Xcadno Dioxide LevelOctober 2024 8:53amOctober 2024 9:43am25.6 mmol/L21.0-31.0[facility] [id number] [address] [facility] 25848Drnld GapOctober 2024 8:53amOctober 2024 9:43am10.2 mEq/L6.0-15.0[facility] [id number] [address] [facility] 695[address]Vynbrka LevelOctober 2024 8:53amOctober 2024 9:43am 9.3 mg/dL8.6-10.3FSt. [facility] Hospital [facility] [id number] [address] [place], [place] [address]Total ProteinOctober 2024 7:25amOctober 2024 8:07am 6.8 g/dL6.4-8.9[facility] [id number] [address] [facility] 675[address]ApboijpRbvcypl 12th, 2025 7:25amOctober 2024 8:07am4.0 g/dL3.5-5.7FSt. [facility] Hospital [facility] [id number] [address] [facility] 30441VjkxxtyaFfnvkvq 12th, 2025 7:25amOctober 2024 8:07am2.8 g/dLMemorial Health System Ctr [id number] [address] [facility] 61179Qmneegb/Globulin RatioOctober 2024 7:25amOctober 2024 8:07am1.4FSt. [facility] Hospital [facility] [id number] [address] [facility] 45413Bufbf BilirubinOct2024 7:25amOct2024 8:07am0.8 mg/dL0.3-1.0[facility] [id number] [address] [facility] 57892Lfpcpbppn Amino Transf (AST/SGOT)February 01, 2025 7:25am February 01, 2025 8:07am14 U/J21-65VcrjgtwqxMemorial Health System Ctr [id number] [address] [place] [address] 27385Qmsbjyp Aminotransferase (ALT/SGPT)February 01, 2025 7:25am February 01, 2025 8:07am16 U/L7-52[facility] [id number] [address] [place] [address] 09817Nqjcxiat PhosphataseOct2024 7:25amOctober 2024 8:07am82 U/K23-565CiqttqppzMemorial Health System Ctr [id number] [address] [place], [place] [address]Troponin I High SensitivityOct2024 7:25amOct2024 8:11am6 ng/L0-15The Troponin units of report have been changed to meet the Chest Pain Accreditation requirement, element EC5.M1l2. Troponin units are changed from pg/ml to ng/L. Also, the decimal is removed and results are in whole numbers.[facility] [id number] [address] [facility] 14257T-Zflz Natriuretic PeptideOct2024 10:45amOct2024 11:33am84.0 pg/mL5-100[facility] [id number] [address] [facility] 44304Jjwhizpbdet LevelOctober 2024 7:25amOctober 2024 8:09ij153 mg/dM296-382Cduj less than 200 mg/dl low riskChol 201-239 mg/dl borderline riskChol 240 mg/dl and greater high riskMemorial Health System Ctr [id number] [address] [facility] 53240QSF CholesterolOctober 2024 7:25amOctober 2024 8:07am69 mg/dA96-31QJN CHOL ATP-III CLASSIFICATION Cardiovascular RiskHDL > or equal to 60 mg/dL LOWHDL < 40 mg/dL HIGHMemorial Health System Ctr [id number] [address] [facility] 16959Ssfaxuplceqwt LevelOctober 2024 7:25amOctober 2024 8:07am83 mg/dL0-149TRIG ATP III CLASSIFICATIONTRIG less than 150 mg/dL NormalTRIG 150-199 mg/dL Borderline highTRIG 200-500 mg/dL High TRIG greater than 500 mg/dL Very highStandard traceable to the Center for Disease Conrtrol and Prevention (CDC) test method.[facility] [id number] [address] [facility] 76776AEX Cholesterol, CalculatedOctober 2024 7:25amOctober 2024 8:07am78 mg/dL0-100LDL ATP III CLASSIFICATIONLDL less than 100 mg/dL OptimalLDL 100-129 mg/dL Near or above uprlhlvAQO805-769 mg/dL Borderline highLDL 160-189 mg/dL HighLDL greater than 189 mg/dL Very highMemorial Health System Ctr [id number] [address] [facility] 40735HODL CholesterolOctober 2024 7:25amOctober 2024 8:07am16 mg/dLMemorial Health System Ctr [id number] [address] [facility] 15967Epgvduftdug/HDL RatioOctober 2024 7:25amOctober 2024 8:07am2.4<5.0[facility] [id number] [address] [facility] 99011Xhabbthh Creatinine Clearance (ChemOctober 2024 8:53am February 02, 2025 9:43am53.06[facility] [id number] [address] [place] [address] 83719Gvrytgwfkl V9qMfnztyh 2024 7:25amOctober 2024 10:19am6.1 %Above high normal4.3-5.6Increased risk for diabetes: 5.7 - 6.4diabetes: >6.4glycemic control for adults with diabetes: <7.0[facility] [id number] [address] [place] [address] 82187Fmzbysuaf Average GlucoseOctober 2024 7:25amOctober 2024 10:47zy572 mg/dLMemorial Health System Ctr [id number] [address] [place] [address]70 Diagnostic Imaging Reports Author Jasmeet Trimble [facility] HospitalReport Date/TimeNovember 2024 10:54pm [facility] Main [place] [address] [place] [address] MRI Report Signed Patient: Bambi Irizarry MR#: [id number] : 1950 Acct:[id number] Age/Sex: 74 / F ADM Date: 5 Loc: [facility] Room: Type: [facility] Attending Dr: Alessia Goodson DO Copies to: CHRISTIANA Harris DO~ Ordering Provider: Alessia Goodson DO Date of Service: 03/06/25 MR/MR shoulder RT wo con: persistent pain and limiteduse since injury (despite PT) MR RIGHT SHOULDER CLINICAL INFORMATION: Right shoulder pain after fall with pain greatest along the anterior aspect of the right humeral head. COMPARISON: None. PROCEDURE: Axial, oblique coronal, and oblique sagittal long TR images of the shoulder were obtained. FINDINGS: ROTATOR CUFF AND ASSOCIATED STRUCTURES Biceps Tendon: There is increased signal intensity along the proximal long head of the biceps tendon with fluid along the tendon sheath consistent with tenosynovitis Rotator cuff: There is a full-thickness tear of the supraspinatus tendon predominantly centered across the subacromial space. The tear extends medially along the musculotendinous junction. There is apartial-thickness articular surface tear of the infraspinatus tendon. The subscapularis and teres minor tendons are intact. Musculature: There is no muscular tear, contusion, or atrophy. Bursa: Fluid is noted in the subacromial bursa. OSSEOUS STRUCTURES Acromioclavicular joint: There are mild degenerative changes of the acromioclavicular joint. A type3 acromion configuration is noted. There is lateral acromial downsloping. Bones: No Hill-Sachs, reverse Hill-Sachs, or bony Bankart lesions are seen. There are no fractures or regions. Subcortical cystic changes noted at the rotator cuff insertion along the greater tuberosity of the humeral head. GLENOHUMERAL JOINT Joint: There is no glenohumeral joint effusion. Cartilage: There is partial thickness chondromalacia. There is mild subcorticalcystic change in theglenoid. Labrum: The labrum is not optimally evaluated. Other support structures: No capsular or ligamentous abnormality is seen. MR/MR shoulder RT wo con IMPRESSION: 1. There is increased signal intensity along the proximal long head of the biceps tendon with fluidalong the tendon sheath consistent with tenosynovitis 2. There is a full-thickness tear of the supraspinatus tendon predominantly centered across the subacromial space. 3. The tear extends medially along the musculotendinous junction. There is a partial-thickness articular surface tear of the infraspinatus tendon. 4. There are mild degenerative changes of the acromioclavicular joint. A type 3 acromion configuration is noted. There is lateral acromial downsloping. Correlation with clinical signs of rotator cuffimpingement is recommended. Impression dictated by: Jasmeet Trimble M.D. 03/06/2025 10:54 PM Dictation Location: [place] [address] Transcribed By: [facility] 03/06/252253 Dictated By: Jasmeet Trimble II, MD 03/06/252238 Signed By: <Electronically signed by Jasmeet Trimble II, MD in [place]> 03/06/252253 Vital Signs Vital Reading Result Reference Range Collection Date/Time Height 59 [in_i] January 31, 2025 3:63ptEzgtzt31.20 [facility] 3:23amBody Temperature 98.1 [degF]97.6-99.0[facility] 2024 10:42amHeart Rate78 /lxx13-965Ufuxkop 2024 3:44pmRespiratory rate16 /myz93-63Lkfpsil 2024 3:44pmOxygen saturation by Pulse qglxmpzi45 %95-100[facility] 2024 3:44pmBP Eqyshrmx769 mm[Hg]100-140[facility] 2024 3:44pmBP Xkwpcbswt82 mm[Hg]60-100[facility] 2024 3:35yqRdarqo96 [in_i]March 05, 2025 11:86qtWfgkdp62.02 [facility] 11:49amBody Xsxbbrjueno71.2 [degF]97.6-99.0[facility] 2024 11:49amHeart Rate72 /pwo60-480Ochpndqi 2024 11:49amRespiratory rate16 /min 12-24[facility] 2024 11:49amOxygen saturation by Pulse zkinioke42 %95-100 March 05, 2025 11:49amBP Gvleomhn126 mm[Hg]100-140[facility] 2024 11:49amBP Egieknorp82 mm[Hg]60-100[facility] 2024 11:49amBMI (Body Mass Index)32.5 kg/y9Ealpwkcg2024 11:49am Advance Directives Advance Directive Response Recorded Date/ Time Advance Directives No March 7:58am Insurance Providers Guarantor Bambi Irizarry Address [address] [facility] [address]Vhuzmdo Info.Home Phone: Coverage Status Update:2024 Payer Group Member ID Coverage Type Subscriber Relationship to Subscriber Effective Date Expiration Date Rosalind MEZA Id: [id number] L Baker Id: [id number] [address] [facility] [address] Home Phone: Self Encounters Encounter Location(s) Arrival/Admit Date Discharge/Departure Date Discharge/Departure Disposition Provider(s) [facility]ed [facility] January 06, 2025 9:50am January 06, 2025 9:51am Discharged to home care or self care (routine discharge) Jessica Mederos DO Discharged Inpatient -[facility] February 01, 2025 4:11pm February 02, 2025 4:57pm Discharged to home care or self care (routine discharge) Sina Latham MD Departed Clinical -Ultrasound [facility] February 10, 2025 2:20pm February 10, 2025 2:21pm Discharged to home care or self care (routine discharge) Kristina Starkey APRN Discharged Recurring -[facility] February 11, 2025 1:00pm February 11, 2025 5:00pm Discharged to home care or self care (routine discharge) Jessica Mederos DO Departed Physician/ Provider Office Visit -[facility] March 05, 2025 11:17am March 05, 2025 12:24pm Discharged to home care or self care (routine discharge) Pramod Simmons MD Departed Clinical -MRI [address] Closed March 06, 2025 11:54am March 06, 2025 11:55am Discharged to home care or self care (routine discharge) Jessica Mederos DO Recent Diagnosis Onset Date Admit Date Carotid stenosis, bilateral Unknown 2024 4:11pm Current every day smoker Unknown February 01, 2025 4:11pm PAD (peripheral artery disease) Unknown February 01, 2025 4:11pm Tobacco use disorder Unknown January 4:11pm Chest pain Unknown February 01 4:11pm Ventricular tachycardia Unknown February 01, 2025 4:11pm PAD (peripheral artery disease) Unknown March 05, 2025 11:17am Functional Status Observation Response Date Recorded Dressing Patient at Baseline January 3:45pm Eating Patient at Baseline January 3:45pm Bathing Patient at Baseline January 3:45pm Disability Status Patient at Baseline February 022024 3:45pm Mental Status Observation Response Date Recorded Cognitive Status Patient at Baseline October 13t h, 2025 3:45pm Cognitive/Mental Status Assessments Assessments Diagnosis Onset Date Resolution Status Admit Date Carotid stenosis, bilateral acuteOctober 2024 4:11pmCurrent every day smokeracuteOctober 2024 4:11pmPAD (peripheral artery disease)acuteOctober 2024 4:11pmTobacco use disorderacuteOctober 2024 4:11pmChest painresolvedOctober 2024 4:11pmVentricular tachycardiaresolvedOctober 2024 4:11pmPAD (peripheral artery disease)acuteNovember 2024 11:17am Plan of Treatment Author Pramod Simmons [facility]ored[facility] 1:38pmThis patient seems to be complaining of significant claudication. This is much more since her last visit. I suggested a angiogram for possible intervention due to her lifestyle limiting claudication. Based on clinical exam it is in the femoropopliteal location. The patient wishes to think about this and will call us back and let us know of her intentions. Future Tests Future scheduled test information is unavailable Pending Tests Pending diagnostic test information is unavailable Future Visits Future appointment information is unavailable Future Procedures Procedure Name Ordered Date Scheduled Date Admit Status Order January 31, 2025 1:54pm Oct kyler 2024 1:54pm Cardiology PRN Orders February 02, 2025 10:08am February 02, 2025 10:08am Discharge Order February 02, 2025 3:08pm Octobe r 2024 3:08pm Future Medications Future medication information is unavailable Patient Instructions Instruction Admit Date Know your Meds February 01, 2025 4 :11pm Goals Acute Goals Author Authored Date Exhibit optimal tissue perfu ramone * Exhibits adequate oxygenation and ventilation * Exhibits adequate cardiac output * Regains stable cardiac rhythm * Maintains optimal activity level * Maintains balanced intake and outputKakarmena Tl [facility] HospitalOctober 2024 11:20pmSkin integrity intact Jazmin Bonds [facility]October 2024 3:57pmMaintain/increase activity levels * Understands factors that may lead to activity intolerance * Helps perform self care activities * Maintains maximum range of motion * Increase/regain muscle mass and strength * Maintains VS WNL during activity * Maintain intact skin integrity Updated: 06/05/2022Jazmin [facility]:57[facility] Preferences Type Detail Treatment Intervention Code Status: Full Code
--- OUTSIDE RECORDS SUMMARY | 2025-03-12 14:00 | XMS_ITS ---
Author Organization [facility] Address [address] [place] [address] Care Team Providers Care Top Inventory Control Executive Name Role Phone Alessia Goodson DO Primary Care Provider Keyon Parrish MD Unavailable [phone] Antonio Segovia MD Unavailable [phone] Pramod Simmons MD Unavailable [phone] Alessia Goodson DO Unavailable [phone] Anna Beltre RN Unavailable [phone] 30 Day Monitoring Program Status:Closed (Closed) Start date:02/03/2025 Enrollment date:02/03/2025 End date:03/04/2025 Close reason:Actively enrolled in CCM Overview 02/02 [facility] chest pain <March 04, 2025, 12:04 - Anna Beltre, JOEL> 30 day completed Continued Care and Services Coordination
--- OUTSIDE RECORDS SUMMARY | 2025-03-12 14:01 | XMS_ITS | Encounter Summary ---
Author Organization [facility] Address [address] [place] [address] Care Team Providers Care Mine Expert Name Role Phone Alessia Goodson DO Primary Care Provider Keyon Parrish MD Unavailable [phone] Antonio Segovia MD Unavailable [phone] Pramod Simmons MD Unavailable [phone] Alessia Goodson DO Unavailable [phone] Anna Beltre RN Unavailable [phone] Encounter Details DateTypeDepartmentCare Team (Latest Contact Info)Hvppzlftnak73/12/2025Patient Outreach [facility] [address] [place] [address] Anna Beltre, RN [address] [place], [place] [id number] Social History Tobacco UseTypesPacks/DayYears UsedDateSmoking Tobacco: Every DayCigarettes1.5 52.9Started: 04/23/1972Smokeless Tobacco: NeverAlcohol UseStandard Drinks/Week CommentsNot Currently0 (1 standard drink = 0.6 oz pure alcohol)Pt does not drink [id number] Health LiteracyAnswerDate RecordedHow often do you need to have someone help you when you read instructions, pamphlets, or other written material from your doctor or pharmacy?Never08/12/2024Humiliation, Afraid, Rape, and Kick questionnaireAnswerDate RecordedWithin the last year, have you been afraid of your partner or ex-partner?No08/12/2024Within the last year, have you been humiliated or emotionally abused in other ways by your partner or ex-partner?08/12/2024Within the last year, have you been kicked, hit, slapped, or otherwise physically hurt by your partner or ex-partner?No08/12/2024Within the last year, have you been raped or forced to have any kind of sexual activity by your partner or ex-partner?08/12/2024Social Connection and Isolation Panel AnswerDate RecordedIn a typical week, how many times do you talk on the phone with family, friends, or neighbors?More than three times a week08/12/2024How often do you get together with friends or relatives?Once a week08/12/2024How often do you attend baptism or druze services?Never08/12/2024Do you belong to any clubs or organizations such as baptism groups, unions, fraternal or athletic groups, or school groups?No08/12/2024How often do you attend meetings of the clubs or organizations you belong to?Never08/12/2024re you , , , , never , or living with a partner?Ypskazj6208/12/2024 AUDIT-CAnswerDate RecordedQ1: How often do you have a drink containing alcohol? Monthly or less08/12/2024Q2: How many drinks containing alcohol do you have on a typical day when you are drinking?1 or Q3: How often do you have six or more drinks on one occasion?Never08/12/2024Overall Financial Resource Strain (CARDIA)AnswerDate RecordedHow hard is it for you to pay for the very basics like food, housing, medical care, and heating?Not hard at all08/12/2024PHQ-2 AnswerDate RecordedPatient Health Questionnaire-2 [facility]irt007[facility] [place] of Occupational Health - Occupational Stress QuestionnaireAnswerDate RecordedDo you feel stress - tense, restless, nervous, or anxious, or unable to sleep at night because yourmind is troubled all the time - these days?Only a hqfbui6108/12/2024Exercise Vital SignAnswerDate RecordedOn average, how many days per week do you engage in moderate to strenuous exercise (like a brisk walk)?0 days08/12/2024On average, how many minutes do you engage in exercise at this level?0 min08/12/2024Hunger Vital SignAnswerDate RecordedWithin the past 12 months, you worried that your food would run out before you got the money to buy more.Never true08/12/2024Within the past 12 months, the food you bought just didn't last and you didn't have money to get more.Never true08/12/2024PRAPARE - TransportationAnswerDate RecordedIn the past 12 months, has lack of transportation kept you from medical appointments or from getting medications?No 08/12/2024In the past 12 months, has lack of transportation kept you from meetings, work, or from getting things needed for daily living?No08/12/2024 Housing Stability Vital SignAnswerDate RecordedIn the last 12 months, was there a time when you were not able to pay the mortgage or rent on time?No11/14/2022In the last 12 months, how many places have you lived?In the last 12 months, was there a time when you did not have a steady place to sleep or slept in [place] (including now)?No11/14/2022Housing Stability Vital SignAnswerDate RecordedIn the last 12 months, was there a time when you were not able to pay the mortgage or rent on time?No08/12/2024In the past 12 months, how many times have you moved where you were living?t any time in the past 12 months, were you homeless or living in a fci (including now)?No08/12/2024 CommentsUnknownSex and Gender InformationValueDate RecordedSex Assigned at BirthNot on fileLegal GlmYluxuj35/15/2023 7:33 PM EDTGender IdentityNot on fileSexual OrientationNot on filedocumented as of this encounter Progress Notes * Anna Beltre RN - 03/04/2025 12:05 PM EST Chart reviewed. Spoke to pt for last weekly/30 day monitor and monthly monitor call. Pt states she has no had chest pain since she was discharged. BP has been good. Discussed referral for the MRI forher right shoulder. Pt does not have this scheduled with [facility] yet. States she called last weekand was still pending. Discussed she will need to call [facility] to see if it has been approved. Ptstates she will and has the number. Pt states she has all medications, no changes and taking them all. No other questions or concerns. Encouraged to call when needs arise. documented in this encounter Plan of Treatment DateTypeDepartmentCare Team (Latest Contact Info)Lymjkylsruy76/05/2025 11:00 AM ESTOffice Visit [facility] [address] [place] [phone] Kole Kim, DO [address] [facility] [place] [place] [address] 04/30/2025 1:30 PM ESTOffice Visit [facility] [address] [place] [phone] Alessia Goodson DO [address] [place] [address] documented as of this encounter Visit Diagnoses Diagnosis Primary hypertension- Primary Unspecified essential hypertension Centrilobular emphysema (HCC) GERD without esophagitis Esophageal reflux documented in this encounter Care Teams Team MemberRelationshipSpecialtyStart DateEnd Date Alessia Goodson DO [address] [place] [address] PCP - GeneralInternal Medicine09/13/22 Alessia Goodson DO [address] [place] [address] PCP - [place]04/23/24 Keyon Parrish MD [address] [facility] [address] [place] [phone] Consulting PhysicianGastroenterology09/21/22 Antonio Segovia MD [address] [facility] [address] [place] [address] Consulting PhysicianPodiatry09/21/22 Pramod Simmons MD [address] [facility] [address] [place] [address] Consulting PhysicianVascular Surgery09/21/22 Anna Beltre, JOEL [address] [facility] [address] [place] [address] Registered NurseFamily Medicine11/13/24documented as of this encounter
--- OUTSIDE RECORDS SUMMARY | 2025-03-12 14:01 | XMS_ITS | Clinical Summary ---
Author Organization [facility] Address [address] [facility] [place] [address] Care Team Providers Care Tree And Shrub Worker Name Role Phone Alessia Goodson DO Primary Care Provider Keyon Parrish MD Unavailable [phone] Antonio Segovia MD Unavailable [phone] Pramod Simmons MD Unavailable [phone] Alessia Goodson DO Unavailable [phone] Anna Beltre RN Unavailable [phone] Allergies No known active allergies Medications MedicationSigDispense QuantityRefillsLast FilledStart DateEnd DateStatus cholecalciferol (Vitamin D-3) 50 MCG (1999) tablet Take by mouth 1 (one) time each day.Active Cnfkeoh-Ruilfuogiat-Rzgczhhqlg (Breztri Aerosphere) 160-9-4.8 MCG/ACT aerosol Indications:Chronic Obstructive Pulmonary DiseaseInhale 2 puffs in the morning and 2 puffs before bedtime. Through [facility] [place] [facility] [place] Pharmacy not to fill Rx. 02/14/2024ctive cilostazol (Pletal) 100 MG tablet Indications:PAOD (peripheral arterial occlusive disease)Take 1 tablet (100 mg) by mouth in the morning and 1 tablet (100 mg) before bedtime. 60 tablet [id number] amLODIPine (Norvasc) 10 MG tablet Indications:Primary hypertensionTAKE 1 TABLET (10 MG) BY MOUTH DAILY. 90 tablet 5Active alendronate (Fosamax) 70 MG tablet Indications:Osteoporosis, postmenopausalTake 1 tablet (70 mg) by mouth every 7 (seven) days Take in the morning with a full glass of water,on an empty stomach, and do not take anything else by mouth or lie down for the next 30 min. 12 tablet [id number] metoprolol succinate XL (Toprol-XL) 25 MG 24 hr tablet Take 25 mg by mouth in the morning.5Active atorvastatin (Lipitor) 40 MG tablet Take 40 mg by mouth at bedtimeActive valsartan (Diovan) 40 MG tablet Take 40 mg by mouth DailyActive aspirin 81 MG chewable tablet Chew 81 mg DailyActive Active Problems ProblemNoted DateDiagnosed DateChest pain02/03/2025Tobacco use disorder 02/03/2025 Overview (02/18/2025): She is working on reducing her smoking Ventricular xfddprgezpz32/14/2025ACP (advance care planning)10/28/2024 Overview (10/28/2024): Packet provided 10/2024 Bilateral carotid artery jvjocvyh08/25/2024 Overview (02/15/2024): Last carotid U/S 02/07/2024. <50% bilateral disease Assessment & Plan (11/11/2024 12:38 PM EDT): Continue to work on risk factor modifications Assessment & Plan (07/20/2024 8:27 PM EDT): Continue to work on risk factor modifications Assessment & Plan (02/15/2024 1:25 PM EDT): Continue to work on risk factor modifications Arthritis of lumbar spine11/29/2022ursitis of left hip10/21/2022 Overview (01/23/2023): Imaging done 10/2022 with no significant bony changes seen. Referred to PT 11/2022 -She completed PT 01/19/2023 and reports the pain is better (still some leg weakness, but doing HEP as recommended) Primary lvqrywcayrxj78/24/2023 Overview (02/18/2025): Prescribed amlodipine 10 mg, valsartan 40 mg and metoprolol 25 mg Assessment & Plan (02/18/2025 9:01 AM EDT): Home BP readings have been reasonable. No med changes at this time. Assessment & Plan (11/11/2024 12:39 PM EDT): I have reinforced importance of lifestyle modifications (healthy diet choices, regular exercise andweight management) for custodial control of blood pressure. Pt is aware of the increased risk of complications ( for example: stroke, heart failure, heart attack, kidney damage or ) when BP not adequately controlled. -Based on review of medications and current medical status; continuation of medications most appropriate. -Will continue to monitor on current rx Assessment & Plan (07/20/2024 8:24 PM EDT): Her BP doing fine on current rx. Based on review of patient's medications and current medical status; continuation of medications most appropriate. Compliance with medications and/or management recommendations encouraged. Will continue to monitor control Assessment & Plan (02/15/2024 1:26 PM EDT): BP is doing fine on current rx. Based on review of patient's medications and current medical status; continuation of medications most appropriate. Compliance with medications and/or management recommendations encouraged. Monitor Assessment & Plan (09/25/2023 11:44 AM EDT): BP is doing fine on current rx. Based on review of patient's medications and current medical status; continuation of medications most appropriate. Compliance with medications and/or management recommendations encouraged. Monitor Assessment & Plan (05/29/2023 10:48 AM EST): -Pt is doing fine on current rx for BP management. Based on review of patient's medications and current medical status; continuation of medications most appropriate. Compliance with medications and/or management recommendations encouraged. Monitor Assessment & Plan (01/23/2023 9:14 PM EDT): -Reinforced importance of lifestyle modifications (healthy diet choices, regular exercise and weight management) for custodial control of blood pressure. Limit salt. Follow the DASH diet. Advised of increased risk of complications ( for example: stroke, heart failure, heart attack, kidney damage or ) when BP not adequately controlled. BP goals reviewed and specific recommendations to achieve the goal/maintain goal BP discussed Mixed oafwghzxurqfdn54/24/2023 Overview (07/20/2024): -She is prescribed atorvastatin (increased dose 05/2023) -05/16/2023: BM=258; HDL=69; HN=336; JVI=163, TC/HDL=2.9 -06/23/2024: ED=025; HDL=78; PX=888; LDL=85; TC/HDL=2.5 Assessment & Plan (11/11/2024 12:39 PM EDT): -The importance of dietary modification, regular cardiovascular activity and compliance with any prescribed medication for long term care pharmacist management/control of lipids has been discussed. Since high cholesterol (especially LDL) is associated with an elevated risk of cardiovascular disease, which includes coronary artery disease, stroke and peripheral vascular disease, and has also been linked to diabetes and high blood pressure risks, by appropriately treating LDL, these risks can be reduced. Assessment & Plan (07/20/2024 8:23 PM EDT): -The importance of dietary modification, regular cardiovascular activity and compliance with any prescribed medication for long term care pharmacist management/control of lipids has been discussed. -Since high cholesterol (especially LDL) is associated with an elevated risk of cardiovascular disease, which includes coronary artery disease, stroke and peripheral vascular disease, and has also been linked to diabetes and high blood pressure risks, by appropriately treating LDL, these risks can be reduced. Assessment & Plan (02/15/2024 1:29 PM EDT): -Reinforced importance of dietary modification, regular cardiovascular activity and compliance withany prescribed medication for custodial management/control of lipids. High cholesterol (especially LDL) is associated with an elevated risk of cardiovascular disease. This includes coronary artery disease. stroke and peripheral vascular disease. High cholesterol has also been linked to diabetes and high blood pressure risks. By appropriately treating LDL, these risks can be reduced. Assessment & Plan (09/25/2023 11:43 AM EDT): -Reinforced importance of dietary modification, regular cardiovascular activity and compliance withany prescribed medication for custodial management/control of lipids. High cholesterol (especially LDL) is associated with an elevated risk of cardiovascular disease. This includes coronary artery disease. stroke and peripheral vascular disease. High cholesterol has also been linked to diabetes and high blood pressure risks. By appropriately treating LDL, these risks can be reduced. Assessment & Plan (05/29/2023 10:47 AM EST): Advised of need to increase the dose of the atorvastatin to get LDL lower. -Reinforced importance of dietary modification, regular cardiovascular activity and compliance withany prescribed medication for custodial management/control of lipids. High cholesterol (especially LDL) is associated with an elevated risk of cardiovascular disease. This includes coronary artery disease. stroke and peripheral vascular disease. High cholesterol has also been linked to diabetes and high blood pressure risks. By appropriately treating LDL, these risks can be reduced. Assessment & Plan (01/23/2023 9:14 PM EDT): -Reinforced importance of dietary modification, regular cardiovascular activity and compliance withany prescribed medication for custodial management/control of lipids. High cholesterol (especially LDL) is associated with an elevated risk of cardiovascular disease. This includes coronary artery disease. stroke and peripheral vascular disease. High cholesterol has also been linked to diabetes and high blood pressure risks. By appropriately treating LDL, these risks can be reduced. PAOD (peripheral arterial occlusive disease)09/13/2022 Overview (11/11/2024): She has been following with Vascular Surgery (Dr Simmons) She was on xarelto for DVT (04/2022-11/2022) and is now on ASA 325 mg daily. IVC filter in place for awhile, then removed. Importance of tobacco cessation, regular exercise and healthy diet have been discussed --- 10/2024 she has stopped the Pletal at some point (she wasn't sure why she was taking it). Advised haydee Assessment & Plan (11/11/2024 12:39 PM EDT): Continue to work on risk factor optimization in order to slow progression Assessment & Plan (07/20/2024 8:24 PM EDT): Continue to work on risk factor optimization in order to slow progression Assessment & Plan (05/29/2023 10:48 AM EST): Discussed recommendation for walking Dose of atorvastatin increased COPD (chronic obstructive pulmonary disease)09/13/2022 Overview (02/15/2024): Prescribed Trelegy (or Bretztri, whichever is available) Assessment & Plan (11/11/2024 12:39 PM EDT): Sx control seems to be stable. She is aware of recommendation for smoking cessation Assessment & Plan (07/20/2024 8:25 PM EDT): Sx control seems to be stable. She is aware of recommendation for smoking cessation Assessment & Plan (09/25/2023 11:43 AM EDT): Sx control seems to be stable. She is aware of recommendation for smoking cessation Assessment & Plan (05/29/2023 10:47 AM EST): She reports breathing is stable. No recent worsening. She is aware of recommendation for smoking cessation Assessment & Plan (01/23/2023 9:13 PM EDT): She is aware of recommendation for smoking cessation. Not only for the benefits related to lung function, but to help her PAD/claudication symptoms GERD without nknqydqeyqx93/24/2023Heavy cigarette vqdefc2909/13/2022 Overview (02/15/2024): She is smoking at least 2 ppd. She has not interest in stopping Assessment & Plan (11/11/2024 12:36 PM EDT): She is due for lung cancer screening. -She has no symptoms suggestive of lung cancer -We have discussed the benefits and potential harms of screening, including potential CT findings, the need for follow-up testing and possible false positive findings (ie a non-cancerous abnormality) -Advised that annual screening is recommended Through shared decision-making and discussion of the above, she wishes to proceed with LDCT for lung cancer screening. Assessment & Plan (09/25/2023 11:45 AM EDT): She is aware of importance to stop smoking Assessment & Plan (05/29/2023 10:49 AM EST): She is aware of recommendation for smoking cessation History of deep venous thrombosis (DVT) of distal vein of right lower extremity 04/23/2022 Overview (11/11/2024): DVT within the distal femoral vein and posterior tibial vein dx 04/2022. She was started on Xarelto. Vas Surgeon/Dr Simmons stopped the Xarelto ~11/2022 She had an IVC filter for awhile- that was removed Assessment & Plan (09/25/2023 11:46 AM EDT): With new swelling and leg pain, I recommend she get an U/S today to r/o new DVT Left foot drop04/23/2022 Assessment & Plan (09/25/2023 11:45 AM EDT): Reminded of importance of making sure to pick her foot/leg up to avoid catching her toe and tripping. PT discussed Assessment & Plan (05/29/2023 10:45 AM EST): Advised to resume HEP that was taught with PT. Also demonstrated a couple of exercises as well. Discussed importance of making sure no obstacles on the floor and being aware of need to apple picking supervisor foot higher when walking. Atherosclerosis of aorta08/05/2020 Assessment & Plan (11/11/2024 12:38 PM EDT): Atherosclerosis is caused when there is too much cholesterol in the blood and this leads to deposits in the blood vessels called plaque. This is a common condition that happens silently over many years. Plaque can cause an artery to become narrowed or blocked. A plaque could also rupture, which would cause a blood clot to form (which could cause acute disruption in blood flow). Treatment is aimed at reducing risk for progression by managing/reducing other CV risk factors. -Treat HTN -Continue treatment with statin (on atorvastatin) -Continue ASA to reduce risk for clots Assessment & Plan (07/20/2024 8:26 PM EDT): Atherosclerosis is caused when there is too much cholesterol in the blood and this leads to deposits in the blood vessels called plaque. This is a common condition that happens silently over many years. Plaque can cause an artery to become narrowed or blocked. A plaque could also rupture, which would cause a blood clot to form (which could cause acute disruption in blood flow). Treatment is aimed at reducing risk for progression by managing/reducing other CV risk factors. -Treat HTN -Treat with statin (or other lipid lowering agents) -Continue ASA to reduce risk for clots Assessment & Plan (09/25/2023 11:44 AM EDT): Risk factor optimization Assessment & Plan (05/29/2023 10:46 AM EST): Risk factor optimization Increased dose of atorvastatin 05/2023 Assessment & Plan (01/23/2023 9:14 PM EDT): Risk factor optimization Osteoporosis, postmenopausal Overview (01/14/2025): Prescribed alendronate in the past, but not currently taking DEXA 09/29/2020 T-scores: L1-4 is -3.2, left femur is -2.4 and Right femur is - 2.5. FRAX predicts [id number] risk for MOF is 23% and hip fx is 8.8 %. DEXA was ordered 09/2022, but with the other healthissues she is dealing with (DVT, amputation of toe, PT for hip pain), she has not gotten it done. DEXA 01/05/2025 T-scores: L1-L4= -2.5, Left femur= -3.2 and Right femur=-2.8 Assessment & Plan (11/11/2024 12:41 PM EDT): Will (re)order DEXA to assess status Assessment & Plan (07/20/2024 8:26 PM EDT): -In order to improve/maintain bone density, I recommended daily weight bearing activity; such as walking, dancing, low impact aerobics, elliptical machine, stair climbing or gardening. -Also, exercises to improve flexibililty and core strengthening are beneficial. -Recommend environmental modifications in the home (ie no rugs and clear clutter) to reduce risk of falls. -I encourage adequate calcium and Vit D intake Assessment & Plan (02/15/2024 1:30 PM EDT): -In order to improve/maintain bone density, I recommended daily weight bearing activity; such as walking, dancing, low impact aerobics, elliptical machine, stair climbing or gardening. -Also, exercises to improve flexibililty and core strengthening are beneficial. -Recommend environmental modifications in the home (ie no rugs and clear clutter) to reduce risk of falls. -I encourage adequate calcium and Vit D intake- I recommend 500-1000 mg of calcium daily as dietary intake or supplement and 1000-2000IU of Vit D (this may vary depending on lab results). Assessment & Plan (05/29/2023 10:48 AM EST): -In order to improve/maintain bone density, I recommended daily weight bearing activity; such as walking, dancing, low impact aerobics, elliptical machine, stair climbing or gardening. -Also, exercises to improve flexibililty and core strengthening are beneficial. -Recommend environmental modifications in the home (ie no rugs and clear clutter) to reduce risk of falls. -I encourage adequate calcium and Vit D intake- I recommend 500-1000 mg of calcium daily as dietary intake or supplement and 1000-2000IU of Vit D (this may vary depending on lab results). Resolved Problems ProblemNoted DateDiagnosed DateResolved DatePresence of IVC ditgux5201/23/2023 11/11/2024 Overview (09/25/2023): removed Anticoagulated by anticoagulation oneftyufs95/06/2022 Overview (09/13/2022): She is was started on Xarelto after LE DVT. She also has an IVC filter Chronic kidney disease due to nmagnsoyoxjs23Nicotine rgvxmtltem69 Encounters DateTypeDepartmentCare SikrBecmbxfqzrj23/16/2025Results Follow-Up [facility] [address] [place] [address] Kathe Dutton NP MR shoulder right wo IV wsowwaoi00/12/2025Patient Outreach [facility] [address] [place] [address] Anna Beltre RN 03/04/2025Patient Outreach [facility] [address] [place] [address] Anna Beltre RN 02/25/2025Patient Outreach [facility] [address] [place] [address] Anna Beltre RN 02/18/2025 8:30 AM EDTOffice Visit [facility] [place] [facility] [address] [place] [address] Alessia Goodson, Decreased range of motion of right shoulder (Primary Dx); Pain and swelling of right shoulder; Injury of right shoulder, subsequent encounter; Primary wdpekzphrgxp35/29/2025Patient Outreach [facility] [address] [place] [address] Anna Beltre RN 02/18/20256279Rvpeim56/22/2025Patient Outreach [facility] [address] [place] [address] Anna Beltre RN 02/11/2025Patient Outreach [facility] [address] [place] [address] Anna Beltre, JOEL 02/09/2025 11:00 AM EDTOffice Visit [facility] [address] [place] [address] Kathe Dutton NP Hospital discharge follow-up (Primary Dx); Other chest pain; Acute pain of right shoulder; Decreased range of motion of right shoulder; Paresthesia of right arm02/09/20256617Glexky43/14/2025Patient Outreach [facility] [address] [place] [address] Anna Beltre, JOEL 02/02/2025Orders Only [facility] [address] [place] [address] Unallocated, Austin Ureña MD 01/13/2025Telephone [facility] [address] [place] [address] Anna Beltre RN 01/12/2025Patient Outreach [facility] [address] [place] [address] Anna Beltre, JOEL 01/07/2025Orders Only [facility] [address] [place] [address] Alessia Goodson, DO Postmenopausal; Osteoporosis cxdlcbowb55/16/2025Refill [facility] [address] [place] [address] Alessia Goodson, DO Mixed hyperlipidemia ; Primary zuljskyinheh11/12/2025Telephone [facility] [address] [place] [phone] Jr. Lorenzo Ramos, DO Rsohoclci34/10/2025Patient Outreach [facility] [address] [place] [address] Anna Beltre JOEL 12/25/2024Patient Outreach [facility] [address] [place] [address] Anna Beltre RN 12/18/2024Patient Outreach [facility] [address] [place] [address] Anna Beltre RN 12/15/2024 3:00 PM EDTOffice Visit [facility] [address] [place] [phone] Kathe Dutton, CINDER MAN Acute pain of right shoulder (Primary Dx); Decreased range of motion of right shoulder; Paresthesia of right arm12/15/20247315Uxlawb67/21/2025Patient Outreach [facility] [address] [place] [address] Anna Beltre, JOEL from Last 3 Months Immunizations ImmunizationAdministration DatesNext DueABRYSVO - Respiratory syncytial virus (RSV), vaccine, bivalent, protein subunit RSV prefusion F, diluent reconstituted, 0.5 mL, PF12/21/2023Influenza, High Dose Seasonal, Preservative Free01/15/2025,12/21/2023,03/02/2022,12/23/2013Influenza, High-dose Seasonal, Quadrivalent, Preservative Free01/16/2020Influenza, Seasonal, Quadrivalent, Jckqyqvybt66/03/2023,1Pfizer Purple Cap SARS-CoV-2 Vaccination 03/17/2021neumococcal Conjugate PCV ,2Pneumococcal Polysaccharide [id number]/02/2024Zoster, Wrjmpmjkhyi19/05/2025, 07/02/2024 Family History Medical HistoryRelationNameCommentsDiabetesBrotherCoronary artery diseaseFather DiabetesFatherHypertensionFatherCancerMaternal GrandfatherRheum arthritis Maternal GrandfatherRheum arthritisMaternal GrandmotherCOPDMotherCancerMother Rheum arthritisPaternal GrandfatherRheum arthritisPaternal GrandmotherRelation WejdFhzwboYewcyqrxTpouepqGaumtkaa6IvgnyqYsbjrmcmPvjqcvcc GrandfatherMaternal GrandmotherMotherDeceasedPaternal GrandfatherPaternal Grandmother Social History Tobacco UseTypesPacks/DayYears UsedDateSmoking Tobacco: Every DayCigarettes1.5 52.9Started: 04/23/1972Smokeless Tobacco: Never Tobacco Cessation:Ready to Q uit: Not Asked; Counseling Given: Not Answered Alcohol UseStandard Drinks/WeekCommentsNot Currently0 (1 standard drink = 0.6 oz pure alcohol)Pt does not drink [id number] Health LiteracyAnswerDate RecordedHow often do you need to have someone help you when you read instructions, pamphlets, or other written material from your doctor or pharmacy?Never 08/12/2024Humiliation, Afraid, Rape, and Kick questionnaireAnswerDate Recorded Within the last year, have you been afraid of your partner or ex-partner?No 08/12/2024Within the last year, have you been humiliated or emotionally abused in other ways by your partner or ex-partner?No08/12/2024Within the last year, have you been kicked, hit, slapped, or otherwise physically hurt by your partner or ex-partner?No08/12/2024Within the last year, have you been raped or forced to have any kind of sexual activity by your partner or ex-partner?No08/12/2024 Social Connection and Isolation PanelAnswerDate RecordedIn a typical week, how many times do you talk on the phone with family, friends, or neighbors?More than three times a week08/12/2024How often do you get together with friends or relatives?Once a week08/12/2024How often do you attend mu-ism or anabaptist services?Never08/12/2024Do you belong to any clubs or organizations such as mu-ism groups, unions, fraternal or athletic groups, or school groups?No 08/12/2024How often do you attend meetings of the clubs or organizations you belong to?Never08/12/2024re you , , , , never , or living with a partner?Vvlyxqg5808/12/2024UDIT-CAnswerDate RecordedQ1: How often do you have a drink containing alcohol?Monthly or less08/12/2024Q2: How many drinks containing alcohol do you have on a typical day when you are drinking?1 or Q3: How often do you have six or more drinks on one occasion?Never08/12/2024Overall Financial Resource Strain (CARDIA)AnswerDate RecordedHow hard is it for you to pay for the very basics like food, housing, medical care, and heating?Not hard at all08/12/2024PHQ-2AnswerDate Recorded Patient Health Questionnaire-2 [id number] [place] [facility] Occup[facility] - Occupational Stress QuestionnaireAnswerDate RecordedDo you feel stress - tense, restless, nervous, or anxious, or unable to sleep at night because your mind is troubled all the time - these days?Only a uqhqxp1408/12/2024Exercise Vital SignAnswerDate RecordedOn average, how many days per week do you engage in moderate to strenuous exercise (like a brisk walk)?0 days08/12/2024On average, how many minutes do you engage in exercise at this level?0 min08/12/2024Hunger Vital SignAnswerDate RecordedWithin the past 12 months, you worried that your food would run out before you got the money to buymore.Never true08/12/2024 Within the past 12 months, the food you bought just didn't last and you didn't have money to get more.Never true08/12/2024PRAPARE - TransportationAnswerDate RecordedIn the past 12 months, has lack of transportation kept you from medical appointments or from getting medications?No08/12/2024In the past 12 months, has lack of transportation kept you from meetings, work, or from getting things needed for daily living?No08/12/2024Housing Stability Vital SignAnswerDate RecordedIn the last 12 months, was there a time when you were not able to pay the mortgage or rent on time?No11/14/2022In the last 12 months, how many places have you lived?In the last 12 months, was there a time when you did not have a steady place to sleep or slept in ashelter (including now)?No 11/14/2022Housing Stability Vital SignAnswerDate RecordedIn the last 12 months, was there a time when you were not able to pay the mortgage or rent on time?No 08/12/2024In the past 12 months, how many times have you moved where you were living?t any time in the past 12 months, were you homeless or living in a long-term (including now)?No08/12/2024CommentsUnknownSex and Gender InformationValueDate RecordedSex Assigned at BirthNot on fileLegal SexFemale 07/05/2022 7:33 PM EDTGender IdentityNot on fileSexual OrientationNot on file Last Filed Vital Signs Vital SignReadingTime TakenCommentsBlood Acxgsjqe921/8210 11:10 AM EDT Yzvxq082302/18/2025 8:41 AM GCQFlfppyfdxlv10.7 ??C (98 ??F)12/09/2024 9:39 AM EDT Respiratory Okkx0451 11:10 AM EDTOxygen Qbmerpazfz46%02/18/2025 8:41 AM EDTInhaled Oxygen Concentration--Ikjjos06.3 kg (163 lb 12.8 oz)02/18/2025 8:41 AM CIFYsgfcx459.4 cm (5')06/04/2023 8:08 AM ESTBody Mass Index31.9906/04/2023 8:08 AM EST Plan of Treatment DateTypeDepartmentCare Team (Latest Contact Info)Ljobnxntctr45/05/2025 11:00 AM ESTOffice Visit [facility] [address] [place] [address] Kole Kim, DO [address] [place] [address] 04/30/2025 1:30 PM ESTOffice Visit [facility] [address] [place] [address] Alessia Goodson, DO [address] [place] [address] Health MaintenanceDue DateLast DoneCommentsLung Cancer Screening Shared Decision Cxywco30 1950COVID-19 Vaccine ( season)/08/2024, 11/22/2021, 03/17/2021, Additional history existsMedicare Annual Wellness (AWV) 607/6647FkwrtdkwfhaSdsqpxcqazgo49/16/2022, 2Colorectal Cancer ScreeningDiscontinuedPneumococcal Vaccine: 65+ XcvpoJhchzgihx17/27/2023, 09/27/2021, 09/15/20208809YiisftvakYyrogatugccb17/16/2025, 12/29/2022, 11/16/2022, Additional history existsInfluenza HwuhqmmNjhzrzhls89/25/2025, 12/21/2023, 01/23/2023, Additional history existsCT ColonographyDiscontinuedFIT-DNA DiscontinuedFITDiscontinuedFOBTDiscontinuedSigmoidoscopyDiscontinued Procedures Procedure NamePriorityDate/TimeAssociated DiagnosisCommentsMR SHOULDER RIGHT WO IV OXNLGYZSSzbploi01/14/2025 10:39 PM EST Decreased range of motion of right shoulder Pain and swelling of right shoulder Injury of right shoulder, subsequent encounter DEXA BONE GTXKTOKLvqgbli62/17/2025 1:27 PM EDT Postmenopausal Osteoporosis screening BI MAMMOGRAM SCREENING TOMOSYNTHESIS QHDVBUNKTIqswdnq01/16/2025 3:13 PM EDT Encounter for screening mammogram for malignant neoplasm of breast BCTIBQEWSLDRunvtda88/16/2022 12:00 PM EDT from Last 3 Months or Most Recently Relevant to Health Maintenance Results * MR shoulder right wo IV contrast (03/06/2025 10:39 PM EST)Anatomical Region LateralityModalityUpper Extremities, ShoulderRightMagnetic ResonanceSpecimen (Source)Anatomical Location / LateralityCollection Method / VolumeCollection TimeReceived Time03/06/2025 10:39 PM EST Impressions 03/06/2025 10:56 PM EST 1. There is increased signal intensity along the proximal long head of the biceps tendon with fluid along the tendon sheath consistent with tenosynovitis ? 2. There is a full-thickness tear of the supraspinatus tendon predominantly centered across the subacromial space. ? 3. The tear extends medially along the musculotendinous junction. ??There is a partial-thickness articular surface tear of the infraspinatus tendon. ? 4. There are mild degenerative changes of the acromioclavicular joint. A type 3 acromion configuration is noted. There is lateral acromial downsloping. ??Correlation with clinical signs of rotator cuff impingement is recommended. ? Impression dictated by: Jasmeet Trimble M.D. ??03/06/2025 10:54 PM ? Dictation Location: [facility]IO-PC-17 ? Transcribed By: ? PWS ?03/06/252253 ? Dictated By: ?Jasmeet Trimble II, MD ?03/06/252238 ? Signed By: <Electronically signed by Jasmeet Trimble II, MD in OV> ? 03/06/252253 Narrative 03/06/2025 10:56 PM EST [facility] ?[facility] ?[address] ? [place] [address] ? MRI Report ? Signed ? Patient: Irizarry,Bambi L ?MR#: [id number] ? : 1950 ?Acct:[id number] ? Age/Sex: 74 / F ?ADM Date: 03/06/25 ? Loc: [facility] ?Room: ?Type: REG CLI ?? Attending Dr: Alessia Goodson DO ?? Copies to: Kathe Dutton APRN ?? Alessia Goodson,DO ? Ordering Provider: Alessia Goodson,DO ?? Date of Service: 03/06/25 ?? MR/MR shoulder RT wo con: persistent pain and limited use since injury (despite PT) ? MR RIGHT SHOULDER ? CLINICAL INFORMATION: Right shoulder pain after fall with pain greatest along the anterior aspect of the right humeral head. ? COMPARISON: None. ? PROCEDURE: Axial, oblique coronal, and oblique sagittal long TR images of the shoulder were obtained. ? FINDINGS: ? ROTATOR CUFF AND ASSOCIATED STRUCTURES ? Biceps Tendon: There is increased signal intensity along the proximal long head of the biceps tendon with fluid along the tendon sheath consistent with tenosynovitis ? Rotator cuff: ??There is a full-thickness tear of the supraspinatus tendon predominantly centered across the subacromial space. ??The tear extends medially along the musculotendinous junction. ??There is a partial-thickness articular surface tear of the infraspinatus tendon. ??The subscapularis and teres minor tendons are intact. ? Musculature: There is no muscular tear, contusion, or atrophy. ? Bursa: Fluid is noted in the subacromial bursa. ? OSSEOUS STRUCTURES ? Acromioclavicular joint: There are mild degenerative changes of the acromioclavicular joint. A type 3 acromion configuration is noted. There is lateral acromial downsloping. ? Bones: ??No Hill-Sachs, reverse Hill-Sachs, or bony Bankart lesions are seen. ??There are no fractures or regions. ??Subcortical cystic changes noted at the rotator cuff insertion along the greater tuberosity of the humeral head. ? GLENOHUMERAL JOINT ? Joint: There is no glenohumeral joint effusion. ? Cartilage: There is partial thickness chondromalacia. ??There is mild subcortical cystic change in the glenoid. ? Labrum: The labrum is not optimally evaluated. ? Other support structures: No capsular or ligamentous abnormality is seen. ? MR/MR shoulder RT wo con ?? Procedure Note Jasmeet Trimble MD - 03/06/2025 [facility] [place] [address] [place] [address] MRI Report Signed Patient: Bambi Irizarry LMR#: [id number] : 9Acct:[id number] Age/Sex: 74 / FADM Date: 03/06/25 Loc: [facility] Room:Type: [facility] Attending Dr: Alessia Goodson DO Copies to: CHRISTIANA Harris DO Ordering Provider: Alessia Goodson DO Date of Service: 03/06/25 MR/MR shoulder RT wo con: persistent pain andlimited use since injury (despite PT) MR RIGHT SHOULDER CLINICAL INFORMATION: Right shoulder pain after fall with pain greatestalong the anterior aspect of the right humeral head. COMPARISON: None. PROCEDURE: Axial, oblique coronal, and oblique sagittal long TR images ofthe shoulder were obtained. FINDINGS: ROTATOR CUFF AND ASSOCIATED STRUCTURES Biceps Tendon: There is increased signal intensity along the proximal longhead of the biceps tendon with fluid along the tendon sheath consistent with tenosynovitis Rotator cuff: There is a full-thickness tear of the supraspinatus tendon predominantly centered across the subacromial space. The tear extends medially along the musculotendinous junction. There is a partial-thickness articular surface tear of the infraspinatus tendon.The subscapularis and teres minor tendons are intact. Musculature: There is no muscular tear, contusion, or atrophy. Bursa: Fluid is noted in the subacromial bursa. OSSEOUS STRUCTURES Acromioclavicular joint: There are mild degenerative changes of the acromioclavicular joint. A type 3 acromion configuration is noted. There is lateral acromial downsloping. Bones: No Hill-Sachs, reverse Hill-Sachs, or bony Bankart lesions areseen. There are no fractures or regions. Subcortical cystic changes noted at the rotator cuffinsertion along the greater tuberosity of the humeral head. GLENOHUMERAL JOINT Joint: There is no glenohumeral joint effusion. Cartilage: There is partial thickness chondromalacia. There is mildsubcortical cystic change in the glenoid. Labrum: The labrum is not optimally evaluated. Other support structures: No capsular or ligamentous abnormality is seen. MR/MR shoulder RT wo con IMPRESSION: 1. There is increased signal intensity along the proximal long head of thebiceps tendon with fluid along the tendon sheath consistent with tenosynovitis 2. There is a full-thickness tear of the supraspinatus tendonpredominantly centered across the subacromial space. 3. The tear extends medially along the musculotendinous junction. Thereis a partial-thickness articular surface tear of the infraspinatus tendon. 4. There are mild degenerative changes of the acromioclavicular joint. Atype 3 acromion configuration is noted. There is lateral acromial downsloping.Correlation with clinical signs of rotator cuff impingement is recommended. Impression dictated by: Jasmeet Trimble M.D. 03/06/2025 10:54 PM Dictation Location: [place] [address] Transcribed By: [facility] 03/06/25 7398 Dictated By: Jasmeet Trimble II, MD 03/06/25 Signed By: <Electronically signed by Jasmeet Trimble II, MD inOV> 03/06/252253 Authorizing ProviderResult TypeResult StatusSandra Jessica Goodson [facility] MRI PROCEDURESFinal Result * DEXA bone density (01/07/2025 1:27 PM EDT)Anatomical RegionLateralityModality BodyRadiographic Imaging Narrative Authorizing ProviderResult TypeResult StatusSandra Lopez Hamzah [facility] DXA PROCEDURESFinal Result * Bilateral screening mammogram with tomosynthesis (01/06/2025 3:13 PM EDT) Anatomical RegionLateralityModalityBreastBilateralMammographySpecimen (Source) Anatomical Location / LateralityCollection Method / VolumeCollection Time Received Time01/06/2025 3:13 PM EDT Impressions 01/06/2025 3:23 PM EDT NO MAMMOGRAPHIC EVIDENCE OF MALIGNANCY. ? ROUTINE FOLLOW-UP IS RECOMMENDED IN ONE YEAR. ? RESULT CODE: 1 ? Negative ? DENSITY CODE: 2 (approximately 25-50% glandular) There are scattered areas of fibroglandular density. ? FOLLOW UP: 1YR ? The false-negative rate of mammography is approximately 10-percent. ? Management of a palpable abnormality must be based on clinical grounds. ? Patient was entered into a reminder system with a target due date for the next mammogram. ? Impression dictated by: Robb Torres M.D. ??01/06/2025 3:20 PM ? Dictation Location: [facility] ? Dictated By: ?Robb Torres MD ? 01/06/25 1513 ? Signed By: <Electronically signed by Robb Torres MD in OV> ? 01/06/25 1520 Narrative 01/06/2025 3:23 PM EDT [facility] ?[address] ?[place] [address] ?? [phone] ? Mammography Report ? Signed ? Patient: Irizarry,Bambi L ?MR#: [id number] ? : 1950 ?Acct:[id number] ? Age/Sex: 74 / F ?Adm Date: 01/06/25 ? Loc: [place] ?Room: ?Type: REG CLI ?? Attending Dr: Alessia Goodson DO ? Ordering Provider: Alessia Goodson,DO ? Date of Service: 01/06/25 ? Procedure(s): MM screening mammo BI w/CAD ?? Accession Number(s): ([id number]) MM/MM screening mammo BI w/CAD: screening ? Copies to: Alessia Goodson, ? CLINICAL DATA: ??Screening for malignancy. ? SCREENING MAMMOGRAM - FULL FIELD DIGITAL WITH TOMOSYNTHESIS AND CAD ? COMPARISON:Priors dating back to 2016 ? Tomosynthesis craniocaudal and mediolateral oblique views of both breasts were obtained using low- dose digital technique. ?? This examination was reviewed with the aid of CAD. ? The breast tissue is almost entirely fatty. There are no dominant masses, typically malignant calcifications or architectural distortion. ??There has been no significant interval change. ? MM/MM screening mammo BI w/CAD ?? Procedure Note Radiology, Radiologist, - 01/06/2025 [place] [address] Mammography Report Signed Patient: Bambi Irizarry LMR#: [id number] : 9Acct:[id number] Age/Sex: 74 / FAdm Date: 01/06/25 Loc: [place] Room:Type: [facility] Attending Dr: Alessia Goodson DO Ordering Provider: Alessia Goodson DO Date of Service: 01/06/25 Procedure(s): MM screening mammo BI w/CAD Accession Number(s): ([id number]) MM/MM screening mammo BI w/CAD:screening Copies to: Alessia Goodson DO CLINICAL DATA: Screening for malignancy. SCREENING MAMMOGRAM - FULL FIELD DIGITAL WITH TOMOSYNTHESIS AND CAD COMPARISON:Priors dating back to 2016 Tomosynthesis craniocaudal and mediolateral oblique views of both breastswere obtained using low- dose digital technique. This examination was reviewed with the aid ofCAD. The breast tissue is almost entirely fatty. There are no dominant masses, typically malignant calcifications or architectural distortion. There has been no significant interval change. MM/MM screening mammo BI w/CAD IMPRESSION: NO MAMMOGRAPHIC EVIDENCE OF MALIGNANCY. ROUTINE FOLLOW-UP IS RECOMMENDED IN ONE YEAR. RESULT CODE: 1 Negative DENSITY CODE: 2 (approximately 25-50% glandular) There are scattered areasof fibroglandular density. FOLLOW UP: 1YR The false-negative rate of mammography is approximately 10-percent. Management of a palpable abnormality must be based on clinical grounds. Patient was entered into a reminder system with a target due date for thenext mammogram. Impression dictated by: Robb Torres M.D. 01/06/2025 3:20 PM Dictation Location: [facility] Dictated By: Robb Torres MD 01/06/25 1513 Signed By: <Electronically signed by Robb Torres MD in OV> 01/06/25 1520 Authorizing ProviderResult TypeResult StatusSayennifer Goodson DOIMG BI PROCEDURESFinal Result * Colonoscopy (10/06/2021 12:00 PM EDT)Anatomical RegionLateralityModality EndoscopySpecimen (Source)Anatomical Location / LateralityCollection Method / VolumeCollection TimeReceived Time10/06/2021 12:00 PM EDT Narrative 10/06/2021 12:00 PM EDT PERFORMED AT [facility] LOCATION:[id number] Moderate diverticulosis with tortuous sigmoid colon Procedure Note CONVERSION, GENERIC - 09/06/2022 PERFORMED AT [facility] LOCATION:[id number] Moderate diverticulosis with tortuous sigmoid colon Authorizing ProviderResult TypeResult StatusSandra Jessica Goodson DOENDOSCOPY PROCEDURE ORDERABLESFinal Result from Last 3 Months or Most Recently Relevant to Health Maintenance Insurance * Guarantor: Bambi Irizarry LAccount TypeRelation to PatientDate of BirthPhone Billing AddressPersonal/QlmpytHnth47/24/1951 [address] [place] [address] Care Teams Team MemberRelationshipSpecialtyStart DateEnd Date Alessia Goodson DO [address] [place] [address] PCP - GeneralInternal Medicine09/13/22 Alessia Goodson DO [address] [place] [address] PCP - [place]04/23/24 Keyon Parrish MD [address] [facility] [address] [place] [phone] Consulting PhysicianGastroenterology09/21/22 Antonio Segovia MD [address] [facility] [address] [place] [address] Consulting PhysicianPodiatry09/21/22 Pramod Simmons MD [address] [facility] [address] [place] [address] Consulting PhysicianVascular Surgery09/21/22 Anna Beltre, JOEL [address] [place] [address] Registered NurseFamily Medicine11/13/24
--- OUTSIDE RECORDS SUMMARY | 2025-03-12 14:01 | XMS_ITS | Encounter Summary ---
Author Organization [facility] Address [address] [place] [address] Care Team Providers Care Director Of People Name Role Phone Alessia Goodson DO Primary Care Provider Keyon Parrish MD Unavailable [phone] Antonio Segovia MD Unavailable [phone] Pramod Simmons MD Unavailable [phone] Alessia Goodson DO Unavailable [phone] Anna Beltre RN Unavailable [phone] Reason for Referral * Consultation (Routine) - AuthorizedSpecialtyDiagnoses / ProceduresReferred By ContactReferred To ContactOrthopaedic Surgery Diagnoses Right shoulder pain, unspecified chronicity Decreased ROM of right shoulder Abnormal MRI, shoulder Alessia Goodson DO [address] [place] [address] Phone: tel: fax: Andrea Rushing DO [address] [place], [place] Phone: tel: fax: Referral IDStatusReasonStart DateExpiration DateVisits RequestedVisits [id number] Specialty Services Required Encounter Details DateTypeDepartmentCare Team (Latest Contact Info)Onjlgpvuryl11/16/2025Results Follow-Up [facility] [address] [place] [phone] Kathe Dutton NP [address] [place] [address] MR fletcher right wo IV contrast Social History Tobacco UseTypesPacks/DayYears UsedDateSmoking Tobacco: Every DayCigarettes1.5 52.9Started: 04/23/1972Smokeless Tobacco: NeverAlcohol UseStandard Drinks/Week CommentsNot Currently0 (1 standard drink = 0.6 oz pure alcohol)Pt does not drink MWZGI1107 Health LiteracyAnswerDate RecordedHow often do you need [...] relatives?Once a week08/12/2024How often do you attend mandaen or oriental orthodox services?Never08/12/2024Do you belong to any clubs or organizations such as mandaen groups, unions, fraternal or athletic groups, or school groups?No08/12/2024How often do you attend meetings of the clubs or organizations you belong to?Never08/12/2024re you , , , , never , or living with a partner?Rsfyqfl0408/12/2024 AUDIT-CAnswerDate RecordedQ1: How often do you have [...] hard at all08/12/2024PHQ-2 AnswerDate RecordedPatient Health Questionnaire-2 Sbfnn734[facility] [place] [facility] - Occupational Stress QuestionnaireAnswerDate RecordedDo you feel stress - tense, restless, nervous, or anxious, or unable to sleep at night because yourmind is troubled all the time - these days?Only a deqlkh4208/12/2024Exercise Vital SignAnswerDate RecordedOn average, how many days [...] to sleep or slept in ashelter (including now)?No11/14/2022Housing Stability Vital SignAnswerDate RecordedIn the last 12 months, was there a time when you were not able to pay the mortgage or rent on time?No08/12/2024In the past 12 months, how many times have you moved where you were living?t any time in the past 12 months, were you homeless or living in a correction (including now)?No08/12/2024 CommentsUnknownSex and Gender InformationValueDate RecordedSex Assigned at BirthNot on fileLegal YwwRvtytz43/15/2023 7:33 PM EDTGender IdentityNot on fileSexual OrientationNot on filedocumented as of this encounter Miscellaneous Notes * Telephone Encounter - Anna Beltre RN - 03/09/2025 11:24 AM EST Called pt, notified that shoulder MRI shows multiple abnormalities including a tear. Needs referredto ortho. Pt states she does not have a preference. States [facility] is fine. Will send referral and their office will contact her to schedule. <March 09, 2025, 11:46 - Anna Beltre RN> referral sent for Andrea Rushing DO * Telephone Encounter - Kathe Dutton NP - 03/09/2025 8:18 AM EST Please call patient and tell her that her shoulder MRI shows multiple abnormalities including a tear. She needs referred to ortho see who she would like to be sent to. documented in this encounter Plan of Treatment DateTypeDepartmentCare Team (Latest Contact Info)Mpuroglpcno89/05/2025 11:00 AM ESTOffice Visit [facility] [address] [place] [address] Kole Kim DO [address] [place] [address] 04/30/2025 1:30 PM ESTOffice Visit [facility] [place] [facility] [address] [facility] [address] [place] [phone] Alessia Goodson, [address] [facility] [address] [place] [address] NameTypePriorityAssociated DiagnosesOrder ScheduleAmbulatory referral to Orthopaedic SurgeryOutpatient ReferralRoutine Right shoulder pain, unspecified chronicity Decreased ROM of right shoulder Abnormal MRI, shoulder Expected: 03/09/2025 (Approximate), Expires: 09/06/2025documented as of this encounter Visit Diagnoses Diagnosis Right shoulder pain, unspecified chronicity Decreased ROM of right shoulder Abnormal MRI, shoulder documented in this encounter Care Teams Team MemberRelationshipSpecialtyStart DateEnd Date Alessia Goodson DO [address] [facility] [address] [place] [address] PCP - GeneralInternal Medicine09/13/22 Alessia Goodson DO [address] [facility] [address] [place] [address] PCP - [place]04/23/24 Keyon Parrish MD [address] [place] [phone] Consulting PhysicianGastroenterology09/21/22 Antonio Segovia MD [address] [facility] [address] [place] [address] Consulting PhysicianPodiatry09/21/22 Pramod Simmons MD [address] [place] [address] Consulting PhysicianVascular Surgery09/21/22 Anna Beltre, JOEL [address] [place] [address] Registered NurseFamily Medicine11/13/24documented as of this encounter
--- OUTSIDE RECORDS SUMMARY | 2025-03-12 14:01 | XMS_ITS | Encounter Summary ---
Author Organization [facility] Address [address] [facility] [place] [address] Care Team Providers Care Material Combiner Name Role Phone Alessia Goodson DO Primary Care Provider Keyon Parrish MD Unavailable [phone] Antonio Segovia MD Unavailable [phone] Pramod Simmons MD Unavailable [phone] Alessia Goodson DO Unavailable [phone] Anna Beltre RN Unavailable [phone] Encounter Details DateTypeDepartmentCare Team (Latest Contact Info)Wqfxapdeqtr51/12/2025Patient Outreach [facility] [address] [place] [address] Anna Beltre, RN [address] [place], [place] [id number] Social History Tobacco UseTypesPacks/DayYears UsedDateSmoking Tobacco: Every DayCigarettes1.5 52.9Started: 04/23/1972Smokeless Tobacco: NeverAlcohol UseStandard Drinks/Week CommentsNot Currently0 (1 standard drink = 0.6 oz pure alcohol)Pt does not drink [id number] Health LiteracyAnswerDate RecordedHow often do you need [...] relatives?Once a week08/12/2024How often do you attend jew or amish services?Never08/12/2024Do you belong to any clubs or organizations such as jew groups, unions, fraternal or athletic groups, or school groups?No08/12/2024How often do you attend meetings of the clubs or organizations you belong to?Never08/12/2024re you , , , , never , or living with a partner?Eyktlae3808/12/2024 AUDIT-CAnswerDate RecordedQ1: How often do you have [...] hard at all08/12/2024PHQ-2 AnswerDate RecordedPatient Health Questionnaire-2 [facility] [place] [facility] - Occupational Stress QuestionnaireAnswerDate RecordedDo you feel stress - tense, restless, nervous, or anxious, or unable to sleep at night because yourmind is troubled all the time - these days?Only a gavxra7408/12/2024Exercise Vital SignAnswerDate RecordedOn average, how many days [...] steady place to sleep or slept in [place] (including now)?No11/14/2022Housing Stability Vital SignAnswerDate RecordedIn the last 12 months, was there a time when you were not able to pay the mortgage or rent on time?No08/12/2024In the past 12 months, how many times have you moved where you were living?t any time in the past 12 months, were you homeless or living in a fpc (including now)?No08/12/2024 CommentsUnknownSex and Gender InformationValueDate RecordedSex Assigned at BirthNot on fileLegal YcuBvqsee56/15/2023 7:33 PM EDTGender IdentityNot on fileSexual OrientationNot on filedocumented as of this encounter Progress Notes * Anna Beltre RN - 03/04/2025 11:55 AM EST Called pt for last weekly/30 day monitor call. Discussed that will resume monthly phone calls. * Anna Beltre RN - 03/04/2025 11:55 AM EST Flowsheet Row Patient Outreach from 03/04/2025 in [facility] with Anna Beltre RN Week Number Call Week 4 Call Was patient contacted successfully? Yes Have you had any urgent care/ED/Hospital visits since discharge? No Any medication changes since last contact? No Is the patient taking all medications as directed? Yes Have you visited your PCP since discharge? Yes Have you visited your specialist since discharge? No, scheduled What is the patient's perception of their health status since discharge? Improving Is the patient/caregiver able to teach back the hierarchy of who to call/visit for symptoms/problems? PCP, Specialist, Home Health nurse, Urgent Care, ED, 911 Yes documented in this encounter Plan of Treatment DateTypeDepartmentCare Team (Latest Contact Info)Elmlkoashwx43/05/2025 11:00 AM ESTOffice Visit [facility] [address] [place] [address] Kole Kim, DO [address] [place] [address] 04/30/2025 1:30 PM ESTOffice Visit [facility] [address] [place] [phone] Alessia Goodson DO [address] [place] [address] documented as of this encounter Visit Diagnoses Diagnosis Chest pain, unspecified type- Primary Chronic obstructive pulmonary disease, unspecified COPD type (HCC) documented in this encounter Care Teams Team MemberRelationshipSpecialtyStart DateEnd Date Alessia Goodson DO [address] [place] [address] PCP - GeneralInternal Medicine09/13/22 Alessia Goodson DO [address] [facility] [address] [place] [address] PCP - [place]04/23/24 Keyon Parrish MD [address] [place] [address] [address] [place] [address] Consulting PhysicianGastroenterology09/21/22 Antonio Segovia MD [address] [facility] [address] [facility] [place] [address] Consulting PhysicianPodiatry09/21/22 Pramod Simmons MD [address] [place] [address] Consulting PhysicianVascular Surgery09/21/22 Anna Beltre, JOEL [address] [facility] [address] [place] [address] Registered NurseFamily Medicine11/13/24documented as of this encounter
--- OUTSIDE RECORDS SUMMARY | 2025-03-12 14:02 | XMS_ITS | Clinical Summary ---
Author Organization [facility] Address [address] [place] [address] Phone Care Team Providers Care Vice President Investor Relations Name Role Phone Alessia Goodson DO Primary Care Provi alex Social History Tobacco UseTypesPacks/DayYears UsedDateSmoking Tobacco: Never Assessed CommentsUnknownSex and Gender InformationValueDate RecordedSex Assigned at Not on fileLegal UoySrxgxz76/29/2022 1:59 AM ESTGender IdentityNot on fileSexual OrientationNot on file Plan of Treatment DateTypeDepartmentCare Team (Latest Contact Info)Mezhmhbxqcf41/24/2025 10:20 AM ESTOffice Visit [facility] [address] [facility] [address] [place] [address] Jigna Yeboah MD [address] [facility] [address] [place] [address] Health MaintenanceDue DateLast DoneCommentsLipid Panel1948Welcome to Medicare Visit1948Diabetes Ojtenwzez41/24/1967Hepatitis C Screening 1966Pneumococcal Vaccine (1 of 2 - PCV)11/14/1967DTaP/Tdap/Td Vaccines (1 - Tdap)1970Zoster Vaccines (1 of 2)1998Bone Density Scan2013 RSV High Risk: (Elderly (60+) or Population) (1 - 1-dose 75+ series) 11/14/2023Influenza Vaccine (#1)2024OVID-19 Vaccine (1 - 2024- season) 2024HIB VaccinesAged OutNo longer eligible based on patient's age to complete this topicHPV VaccinesAged OutNo longer eligible based on patient's age to complete this topicHepatitis A VaccinesAged OutNo longer eligible based on patient's age to complete this topicHepatitis B VaccinesAged OutNo longer eligible based on patient's age to complete this topicIPV VaccinesAged OutNo longer eligible based on patient's age to complete this topicMeningococcal VaccineAged OutNo longer eligible based on patient's age to complete this topic Rotavirus VaccinesAged OutNo longer eligible based on patient's age to complete this topic Insurance * Guarantor: Héctor Irizarry TypeRelation to PatientDate of BirthPhoneBilling AddressPersonal/TzuoscXrsd10/24/1951 [address] [place] [address] * Guarantor: Héctor Irizarry TypeRelation to PatientDate of BirthPhoneBilling AddressPersonal/AbgamqFkfx20/24/1951 [address] [facility] [place] [address] Care Teams Team MemberRelationshipSpecialtyStart DateEnd Date Alessia Goodson DO [address] [place] [address] [place] [address]/2/22
--- OUTSIDE RECORDS SUMMARY | 2025-03-12 14:02 | XMS_ITS | Patient Health Record ---
Author Organization [facility] [place] Address [address] [place] [address] Care Team Providers Care Director Of Collections Name Role Phone Alessia Goodson DO Primary Care Provider Un available Kaelyn Vargas Unavailable [phone] Allergies No Known Allergies Reason For Referral No Information Medications Medication SIG (Take, Route, Frequency, Duration) Notes Start Date End Date Status Venlafaxine HCl 100 MG 1 tablet with food Orally Once a day ActiveValsartan 160 MG1 tablet Orally Once a dayActivetiZANidine HCl 4 MG1 tablet at bedtime as needed Orally Once a dayActiveLisinopril 10 MG1 tablet Orally Once a dayActive Social History Tobacco Use: Social History Observation Description Date Details (start date - stop date) Current Smoker NA - NA Tobacco Use/Smoking Question Answer Notes Patient is a current smoker How often do you smoke cigarettes?every dayHow many cigarettes a day do you smoke?31 or moreHow soon after you wake up do you smoke your first cigarette?6- 30 minutesAre you interested in quitting?Not ready to quit Problems Problem Type SNOMED Code ICD Code Onset Dates Problem Status W/U Status Risk Notes Problem Acquired hammer toe of right foot ([id number]) 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) Activeconfirmed Vital Signs Heart Rate 86 /min 06/19/2024 Respiratory Rate16 /min06/19/20249096Jklopfih80 %06/19/20248027Cpkdjm67 in06/19/2024 Fltobg320 lbs06/19/2024BMI32.31 kg/m206/19/2024 Encounters Encounter Location Date Provider Diagnosis [facility] (PODIATRY) [address] [place] [address] [place] [address] 04/03/2024 Kaelyn Vargas Acquired hammer toe deformity of lesser toe of right foot M20.41 and Callus of foot L84 [facility] (PODIAT[facility]) [address] [place] [address] [place] [address] 06/19/2024 Kaelyn Vargas Acquired hammer toe deformity [...] noted pain relief postprocedure. Follow-up as needed. 4Callus of foot (ICD-10 - L84)5Acquired hammer toe deformity of lesser toe of [...] noted pain relief postprocedure. Follow-up as needed. 5Callus of foot (ICD-10 - L84)06/19/2024Nail disorder, unspecified (ICD-10 - L60.9)06/19/2024Pain in left toe(s) (ICD-10 - M79.675)06/19/2024Foot pain, right (ICD-10 - M79.671)06/19/2024Status post amputation of lesser toe of right foot (ICD-10 - Z89.421) Plan Of Treatment No Information Insurance Providers Payer Name Payer Address Payer Phone Subscriber Number Group Number Insured Name Patient Relationship to Insured Coverage Start Date Coverage End Date [employer] ADV PLAN [address] [place] [address] [id number] Bambi Irizarry Self - patient is the insured Medical (General) History Medical History History ICD Code hypertension blood clot right leg, DVTSurgical History Surgery Date(Month/Year) Right 2nd toe arthroplasty, dipesh oneill 12/16/2019 right partial 3rd toe amputation 3
--- NOTE | 2025-03-12 14:19 | PM.WCHP ---
Wound Care H&P: HPI History of Present Illness Narrative: The patient is a pleasant 74-year-old female who presents for routine nail care. The patient had prior partial amputations of the right toes 3 and 4. She complains of pain in her toes related to elongated toenails but otherwise has no camplaints. [facility] Family History (Updated 09/21/22 @ 08:38 by Franca Locke NP) Mother Family history of cancer Family history of COPD (chronic obstructive pulmonary disease) Grandmother Family history of cancer Meds Home Medications and Allergies Home Medications ?Medication ?Instructions ?Recorded ?Confirmed ?Type amlodipine 10 mg tablet 10 mg PO QDAY 09/21/22 09/25/22 History aspirin 81 mg tablet,delayed 81 mg PO QDAY 09/21/22 09/25/22 History release atorvastatin 10 mg tablet 10 mg PO QPM 09/21/22 09/25/22 History cholecalciferol (vitamin D3) 50 50 mcg PO QDAY 09/21/22 09/25/22 History mcg (2,000 unit) capsule fluticasone fur. 200 mcg-umeclid 1 inh inhalation Q24H 09/21/22 09/21/22 History 62.5 mcg-vilant 25 mcg inhalat.powder (Trelegy Ellipta) rivaroxaban 20 mg tablet (Xarelto) 20 mg PO QDAY 09/21/22 09/25/22 History cefadroxil 500 mg capsule 500 mg PO BID 10 days #20 caps 09/25/22 Rx hydrocodone 5 mg-acetaminophen 325 1 tab PO Q6H PRN pain 7 days #28 09/25/22 Rx mg tablet tabs ondansetron 4 mg disintegrating 4 mg PO QDAY PRN nausea and 09/25/22 Rx tablet vomiting 3 days #6 tabs sennosides 8.6 mg tablet (senna) 8.6 mg PO BID PRN constipation 3 09/25/22 Rx days #6 tabs Allergies Allergy/AdvReac Type Severity Reaction Status Date / Time No Known Drug Allergies Allergy Verified 09/21/22 08:27 Exam Narrative: Exam Narrative: Derm: The toenails on the remaining toes are elongated, thickened, incurvated, and mycotic. No ulcerations are noted. Skin is soft but thin and somewhat shiny. Neuro: Sensation is grossly intact. Normal muscle tone. Vascular: Brisk capillary refill to all toes. 2+ pitting edema noted of bilateral ankles Musculoskeletal: Partial amputations noted of right toes 3 and 4, otherwise no gross deformity Assessment and Plan Assessment and Plan (1) PAD (peripheral artery disease): (2) Tinea unguium: (3) Acquired absence of other right toe(s): (4) Toe pain, right: Plan Routine nail care performed. Follow-up in 3 months. Acute Procedures Podiatry Nail Debridement Class A Findings Class A findings: non-traumatic amputation of foot or integral skeletal portion thereof Class B Findings Advanced trophic changes as evidenced by any three of the following: decreased hair growth, nail changes (thickening) and skin texture (thin or shiny) Class C Findings Claudication: No Temperature changes: No Edema: Yes Nail debridement paresthesia (abnormal spontaneous sensations in the feet): No Burning: No Qualifies If: Qualifiers If:: A patient qualifies for nail debridement if they have: 1 class A finding (Q7) 2 class B findings (Q8) OR 1 class B & 2 class C findings in addition to a primary condition (Q9) Nail Procedure Nail Procedure Time out: Yes Nail procedure: other (Toenail debridement) Number of affected nails: 8 Location (toes): left and right (Toenails of right toes 3 and 4 are surgically absent) Patient tolerated procedure: well and no complications Additional comments: Remaining toenails were sharply debrided with nail nippers without incident.
== END 2025-03-12 13:56 | disposition home or self-care (01) ==
LOC: WC 13:55
PROVIDERS: PCP Internal Medicine; Visit Provider Physician Assistant
DX: I73.9 Peripheral vascular disease, unspecified (principal); M79.674 Pain in right toe(s)
CPT/HCPCS: 11721